=== PATIENT | male | born 1970 | race Hispanic/Latino ===

== ENCOUNTER 2017-04-26 09:58 | Inpatient (IN) | payer OTHER ==
[~2017-04-26] VITALS: Ht 165.1 cm; Wt 97.5 kg
[~2017-04-26 09:58] MED LIST: BENZTROPINE ME0.5 M1 PO; HALDOL 5MG TABLE5 MG PO; HALDOL PO; LEVOTHYROXINE50 MCG PO; LITHIUM CARBON600 MG PO; LORAZEPAM1 MG PO; NORVASC10 M1 PO; PROTONIX20 M1 PO
[2017-04-26 11:38] LABS: ABSOLUTE BASOPHIL COUNT 0 /CUMM (0.0-0.2); ABSOLUTE EOSINOPHIL COUNT 0.2 /CUMM (0.0-0.7); ABSOLUTE GRANULOCYTE CT 1.4 /CUMM (1.4-6.5); ABSOLUTE LYMPH COUNT 1.8 /CUMM (1.2-3.4); ABSOLUTE MONOCYTE COUNT 0.5 /CUMM (0.10-0.60); BASOPHIL % 0.7 % (0.0-2.0); EOSINOPHIL % 4.7 % (0-5); GRANULOCYTE % 36.1 % (42.2-75.2); HEMATOCRIT 36.2 % (42-52); MEAN CORPUSCULAR VOLUME 91.3 FL (80.0-94.0); MEAN PLATELET VOLUME 9.6 FL (7.4-10.4); PLATELET COUNT 216 /CUMM (130-400); RBC DISTRIBUTION WIDTH 17.5 % (11.5-14.5); RED BLOOD CELL CT 3.96 /CUMM (4.70-6.10); WHITE BLOOD CELL COUNT 3.9 /CUMM (4.8-10.8)
[2017-04-26] MEDS ORDERED: DEPAKOTE500 M1 PO (11:48)
[2017-04-26] MEDS ORDERED: NEURONTIN300 M1 PO (11:49)
[2017-04-26] MEDS ORDERED: OLANZAPINE10 M1 PO ×2 (11:49→11:51)
[2017-04-26] MEDS ORDERED: VITAMIN D1000 UNIT PO (11:49)
[2017-04-26] MEDS ORDERED: COLACE100 M1 PO (11:50)
[2017-04-26] MEDS ORDERED: HALDOL DEC50 MG/1 ML SC (11:50)
[2017-04-26] MEDS ORDERED: PROAIR HFA8.5 GM INH (11:51)
[2017-04-26] MEDS ORDERED: LOSARTAN POTASS50 M1 PO (11:52)
[2017-04-26] MEDS ORDERED: HALOPERIDOL5 MG PO (11:52)
[2017-04-26] MEDS ORDERED: ZYPREXA2.5 M1 PO (11:52)
--- NOTE | 2017-04-26 12:02 | ED GENERAL ADULT ---
History of Present Illness General Chief Complaint: General Adult Stated Complaint: SIB MD PROCTOR FOR HIGH BLOOD SUGAR Source: patient, family, old records Exam Limitations: no limitations Vital Signs & Intake/Output Vital Signs & Intake/Output Vital Signs Date Time Temp Pulse Resp B/P B/P Pulse O2 O2 Flow FiO2 Mean Ox Delivery Rate 04/28 1550 98.4 94 20 124/78 96 Room Air 04/28 1030 76 140/78 04/28 1030 76 140/78 04/28 0634 97.7 76 18 140/78 93 Room Air 04/27 2148 98.0 86 18 138/82 95 Room Air ED Intake and Output 04/28 0000 04/27 1200 Intake Total 2009 240 Output Total Balance 2009 240 Intake, IV 1050 Intake, Oral 960 240 Number 1 Bowel Movements Allergies Coded Allergies: NO KNOWN ALLERGIES (01/21/11) Triage Note: 46 Y/O MALE SENT BY DR PROCTOR FOR HYPERGLYCEMIA. PT STATES HE HAS BEEN FEELING "FATIGUED AND THIRSTY" FOR APPROX 5 WEEKS. SAW PMD AND HAD BLOOD WORK WHICH SHOWED BLOOD SUGAR >500. PT STATES "I FEEL BETTER TODAY. I FEEL FINE. I DONT WANT TO TAKE MEDICINE OR DO FINGERSTICKS BECAUSE I FEEL IT RUINS MY LIFE". FINGERSTICK IN TRIAGE > 500. PT STATES HE HAS HAD FRUIT, CARROTS, CELARY AND "SWEET TEA" TODAY Triage Nurses Notes Reviewed? yes Onset: Abrupt Duration: constant, x 1 month Timing: recent history Injury Environment: home Severity: moderate, severe Severity Numbers: 10 No Modifying Factors: none Associated Symptoms: nv, weight loss HPI: 46-year-old male with history of hypertension schizoaffective disorder presents to ER with his family sent in by his primary care physician. The patient states over the past 1 month he's lost 28 pounds he's had generalized malaise and fatigue urinary frequency urgency nausea vomiting. His last episode of vomiting was 5 days ago. He states today he was actually feeling improved. He denies any fever chills chest pain abdominal pain dizziness lightheadedness. No known history of diabetes. He is never been told that he has had elevated blood sugar in the past. He is otherwise without any complaints currently. (Phillip LOZANO,Ayan) Reconcile Medications Albuterol Sulfate (Proair Hfa) 90 MCG HFA.AER.AD 2 PUF INH Q4-6 PRN PRN SOB ( Reported) Amlodipine Besylate (Norvasc) 10 MG TABLET 1 TAB PO DAILY HEART (Reported) Benztropine Mesylate 0.5 MG TABLET 1 TAB PO BID MENTAL HEALTH (Reported) Cholecalciferol (Vitamin D3) (Vitamin D) 1,000 UNIT TABLET 1 TAB PO DAILY VITAMIN SUPPORT (Reported) Divalproex Sodium (Depakote) 500 MG TABLET.DR 2 TAB PO BID MENTAL HEALTH ( Reported) Docusate Sodium (Colace) 100 MG CAPSULE 1 CAP PO BID PRN CONSTIPATION ( Reported) Fenofibrate (Tricor) 48 MG TABLET 1 TAB PO DAILY LIPID Gabapentin (Neurontin) 300 MG CAPSULE 1 CAP PO 4 TIMES/DAY MENTAL HEALTH ( Reported) Haloperidol 5 MG TABLET 3 TAB PO BID MENTAL HEALTH (Reported) Haloperidol Decanoate (Haldol Decanoate 50) 50 MG/ML AMPUL 50 MG SC Q 2 WEEKS MENTAL HEALTH (Reported) Levothyroxine Sodium 50 MCG TABLET 1 TAB PO DAILY AC THYROID (Reported) Losartan Potassium 50 MG TABLET 1 TAB PO DAILY HEART (Reported) Olanzapine 10 MG TABLET 1 TAB PO DAILY PRN MENTAL HEALTH (Reported) Olanzapine 10 MG TABLET 1 TAB PO QPM MENTAL HEALTH (Reported) Olanzapine (Zyprexa) 2.5 MG TABLET 1 TAB PO QPM MENTAL HEALTH (Reported) Pantoprazole Sodium (Protonix) 20 MG TABLET.DR 1 TAB PO DAILY ACID REFLUX ( Reported) (Abram ARRIAGA,[facility]) Past History Travel History Traveled to [place] past 21 day No Medical History Any Pertinent Medical History? 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 No (Phillip LOZANO,Ayan) Review of Systems Review of Systems Constitutional: Reports: see HPI. Comments Review of systems: See HPI, All other systems negative. Constitutional, no chills no fever (+) malaise, (+) weight loss HEENT: no sore throat no congestion Cardiovascular: No chest pain Skin: no rashes, no change in skin Respiratory: No dyspnea no cough GI: nausea vomiting, no diarrhea : No dysuria No hematuria, frequency Muscle skeletal: No joint pain, no back pain Neurologic: , no headache Heme/endocrine: No bruising Immunology: No lymphadenopathy (Ayan Acosta) Physical Exam Physical Exam General Appearance: well developed/nourished, alert, awake Comments: Well-developed well-nourished person in no acute distress HEENT: Normal EENT exam; PERRL, EOMI,HEAD is atraumatic. moist mucous membranes. Neck: Supple, no lymphadenopathy, normal range of motion w Back: Nontender, no CVA tenderness. Full range of motion Cardiovascular: Regular rate and rhythms no murmur Respiratory: o respiratory distress. Patient speaking in full complete sentences. Breath sounds clear to auscultation bilaterally: NO W/R/R Abdomen: Soft, nontender nondistended, no appreciable organomegaly. Normal bowel sounds. No rebound/guarding, No appreciable enlargement of the abdominal aorta, No ascites. Extremity: No edema, full range of motion of extremities Neuro: Alert oriented x3, motor sensory normal, There were no obvious focal neurologic abnormalities. Skin: No appreciable rash on exposed skin, skin is warm and dry. Psych: Mood and affect is normal, memory and judgment is normal. Core Measures ACS in differential dx? No CVA/TIA Diagnosis: No Sepsis Present: No Sepsis Focused Exam Completed? No (Ayan Acosta) Progress Differential Diagnoses I considered the following diagnoses in my evaluation of the patient: dka, hhs, electrolyte abnoramlity, uti, malignancy Plan of Care: Orders Procedure Date/time Status CBC WITHOUT DIFFERENTIAL 04/29 0600 Active BASIC ELECTROLYTES PLUS BUN&CR 04/29 0600 Active Change service to 04/28 0826 Active TOTAL IRON BINDING CAPACITY 04/28 0745 Complete FOLIC ACID 04/28 0745 Complete FERRITIN 04/28 0745 Complete SERUM IRON 04/28 0745 Complete DIRECT LDL 04/28 0745 Complete VITAMIN B12 04/28 0745 Complete C-PEPTIDE Ref$ 04/28 0600 Active Lab Add-on Test 04/28 UNK Active Hemoccult 04/28 UNK Active NUTRITIONAL CONSULT 04/28 UNK Active Current Medications Sig/Gee Start time Last Medication Dose Stop Time Status Admin Olanzapine 10 MG DAILY 04/29 1000 CAN (Zyprexa) Olanzapine 2.5 MG DAILY 04/29 1000 CAN (Zyprexa 2.5MG) Olanzapine 12.5 MG QPM 04/28 2200 CAN (Zyprexa) Olanzapine 10 MG QPM 04/28 2200 AC (Zyprexa) Olanzapine 2.5 MG QPM 04/28 2200 AC (Zyprexa 2.5MG) Insulin Aspart Prota 15 UNIT 1/2H B/BREAKF/DINNER 04/28 1630 AC 70%/Aspart 30% (Novolog Mix 70/30) Fenofibrate 48 MG DAILY 04/28 1000 AC 04/28 (Tricor) 1000 Olanzapine 10 MG DAILY NEEDED PRN 04/28 0930 AC (Zyprexa) Glimepiride 4 MG DAILY@0800 04/28 0845 AC 04/28 (Amaryl) 1030 Cholecalciferol 1,000 IU DAILY 04/27 1000 AC 04/28 (Vitamin D) 1030 Losartan Potassium 50 MG DAILY 04/27 1000 AC 04/28 (Cozaar) 1030 Levothyroxine Sodium 0.05 MG DAILY AC 04/27 0700 AC 04/28 (Synthroid) 0611 Omeprazole 20 MG DAILY AC 04/27 0700 AC 04/28 (Prilosec) 0611 Benztropine Mesylate 0.5 MG BID 04/26 2200 AC 04/28 (Cogentin 0.5 MG Tab) 1030 Divalproex Sodium 1,000 MG BID 04/26 2200 AC 04/28 (Depakote) 1030 Haloperidol 15 MG BID 04/26 2200 AC 04/28 (Haldol) 1030 Gabapentin 300 MG 4 TIMES/DAY 04/26 1800 AC 04/28 (Neurontin) 1500 Albuterol Sulfate 2 PUF Q4-6 PRN PRN 04/26 1430 AC (Ventolin) Amlodipine Besylate 10 MG DAILY 04/26 1430 AC 04/28 (Norvasc) 1030 Acetaminophen 325 MG Q6P PRN 04/26 1330 AC (Tylenol) Enoxaparin Sodium 40 MG DAILY 04/26 1321 AC 04/28 (Lovenox) 1030 Laboratory Tests 04/28/17 0745: Anion Gap 17 H, Estimated GFR > 60, BUN/Creatinine Ratio 16.7, Iron 161, TIBC 340, Ferritin 85.4, Triglycerides 661 H, Cholesterol 202 H, LDL Cholesterol Direct 89.37, LDL Cholesterol, Calc ND, HDL Cholesterol 23 L, Cholesterol/HDL Ratio 9 H, Vitamin B12 779, Folate 8.5, CBC w Diff NO MAN DIFF REQ, RBC 3.59 L , MCV 91.7, MCH 30.7, RDW 17.9 H, MPV 9.6, Gran % 35.3 L, Lymphocytes % 47.7, Monocytes % 11.9 H, Eosinophils % 4.6, Basophils % 0.5, Absolute Granulocytes 1.4, Absolute Lymphocytes 1.9, Absolute Monocytes 0.5, Absolute Eosinophils 0.2, Absolute Basophils 0, PUBS MCHC 33.5 04/28/17 0600: C-Peptide Pending Labs ordered old records reviewed IV fluids and insulin 10 units IV ordered case discussed with Dr. Valverde who evaluated the patient agrees with plan. 1320 case d/w dr masters, after reviewing labs, pt is nontoxic appearing here no vomiting, given ph of 7.41 no need for insulin gtt at this time, he will isntead be admitted to floor instea dof icu. we can continue with iv fluids and sc insulin per dr masters. d/w the pt and his family at [facility] all of his labs and plan of care they agree with plan case d/w dr dietrich will admit (Ayan Acosta) PATIENT SEEN AND EXAMINED WITH PA. NEW ONSET DM, PRESENTING WITH DKA. PH 7.41. PER DR MASTERS WILL NOT NEED INSULIN DRIP. D/W DR ZHAO BUT IN LIGHT OF NO INSULIN DRIP WILL GO TO . PATIENT HAS BEEN SYMPTOMATIC FOR ONE MONTH, COMPENSATING. (Sara Valverde MD) Initial ED EKG: normal intervals, normal p-waves, normal QRS complex, normal sinus rhythm (Ayan Acosta) Differential Diagnoses I considered the following diagnoses in my evaluation of the patient: (Sara Valverde MD) Departure Departure Time of Disposition: 1412 Disposition: STILL A PATIENT Condition: Stable Clinical Impression Primary Impression: DKA (diabetic ketoacidoses) Referrals: Van Proctor APRN (PCP/Family) Departure Forms: Customer Survey General Discharge Information Admission Note Spoke With: Karlo ARRIAGA,Cassandra James Documentation of Exam: Documentation of any treatments & extenuating circumstances including Concerns Regarding Discharge (functional status, medication knowledge or non-compliance, living conditions, etc.) that warrant an admission rather than observation: [IV HYDRATION, INSULIN DRIP, MONITOR ELECTROLYTES, ENDOCRINE CONSULTATION, MONITOR I /O, ] (Ayan Acosta) Departure Time of Disposition: 1309 Prescriptions: Current Visit Scripts Fenofibrate (Tricor) 1 TAB PO DAILY #30 TAB Admission Note Spoke With: Cassandra Dietrich MD Documentation of Exam: Documentation of any treatments & extenuating circumstances including Concerns Regarding Discharge (functional status, medication knowledge or non-compliance, living conditions, etc.) that warrant an admission rather than observation: [IV HYDRATION, INSULIN DRIP, MONITOR ELECTROLYTES, ENDOCRINE CONSULTATION, MONITOR I /O, ] PA/INTERIOR MECHANIC Co-Sign Statement Statement: ED Attending supervision documentation- [X] I saw and evaluated the patient. I have also reviewed all the pertinent lab results and diagnostic results. I agree with the findings and the plan of care as documented in the PA's/INTERIOR MECHANIC's documentation. [X] I have reviewed the ED Record and agree with the PA's/INTERIOR MECHANIC's documentation. [] Additions or exceptions (if any) to the PAs/INTERIOR MECHANIC's note and plan are summarized below: [] (Sara Valverde MD) Critical Care Note Critical Care Note Critical Care Time: 30-74 min (Ayan Acosta) (Ayan Acosta) Departure Time of Disposition: 1309 Admission Note Spoke With: Cassandra Dietrich MD Documentation of Exam: Documentation of any treatments & extenuating circumstances including Concerns Regarding Discharge (functional status, medication knowledge or non-compliance, living conditions, etc.) that warrant an admission rather than observation: [IV HYDRATION, INSULIN DRIP, MONITOR ELECTROLYTES, ENDOCRINE CONSULTATION, MONITOR I /O, ] PA/INTERIOR MECHANIC Co-Sign Statement Statement: ED Attending supervision documentation- [X] I saw and evaluated the patient. I have also reviewed all the pertinent lab results and diagnostic results. I agree with the findings and the plan of care as documented in the PA's/INTERIOR MECHANIC's documentation. [X] I have reviewed the ED Record and agree with the PA's/INTERIOR MECHANIC's documentation. [] Additions or exceptions (if any) to the PAs/INTERIOR MECHANIC's note and plan are summarized below: [] (Skylar Valverde MDi) Critical Care Note Critical Care Note Critical Care Time: 30-74 min (Ayan Acosta)
--- NOTE | 2017-04-26 14:28 | History & Physical ---
Joel Uriostegui 04/26/17 1403: General Information and HPI MD Statement: I have seen and personally examined FARHATNAHOMY and documented this H&P. The patient is a 46 year old M who presented with a patient stated chief complaint of generalized malaise and fatigue. Source of Information: patient Exam Limitations: no limitations History of Present Illness: Patient is a 46-year-old male with past medical history of hypertension,schizo affective disorder was sent in by his PCP to the ER for abnormal blood work showing elevated blood sugar levels. Patient reports that for the past 1 month he has been feeling very lethargic, tired and fatigued and has lost about 28 pounds. He did have few episodes of nausea and vomiting. He has been drinking a lot of fruit juices, fruits and vegetables and not much carbohydrates over the past few days. Also endorses increasing urinary frequency and urgency. Denies any chest pain, shortness of breath, palpitations, abdominal pain, bowel symptoms. He has no history of diabetes. No recent infections, sick contacts, or travel. He visited his PCP Nhan MICHELLE for the following complaints and blood work done in his office revealed elevated blood sugar levels. Therefore he was advised to come to the ER for evaluation. Labs in the ER showed an H&H of 12.3/36.2, sodium 134, potassium 4.3, carbon dioxide of 19, anion gap 26, creatinine 0.8, glucose 547, serum osmolality 307, lactic acid 1.1, mag 1.6, alkaline phosphatase 187, troponin 0.01, positive acetones.UA clean VBG showed a pH of 7.41/CO2 21/O2 92 Allergies/Medications Allergies: Coded Allergies: NO KNOWN ALLERGIES (01/21/11) Home Med list Albuterol Sulfate (Proair Hfa) 90 MCG HFA.AER.AD 2 PUF INH Q4-6 PRN PRN SOB ( Reported) Amlodipine Besylate (Norvasc) 10 MG TABLET 1 TAB PO DAILY HEART (Reported) Benztropine Mesylate 0.5 MG TABLET 1 TAB PO BID MENTAL HEALTH (Reported) Cholecalciferol (Vitamin D3) (Vitamin D) 1,000 UNIT TABLET 1 TAB PO DAILY VITAMIN SUPPORT (Reported) Divalproex Sodium (Depakote) 500 MG TABLET.DR 2 TAB PO BID MENTAL HEALTH ( Reported) Docusate Sodium (Colace) 100 MG CAPSULE 1 CAP PO BID PRN CONSTIPATION ( Reported) Gabapentin (Neurontin) 300 MG CAPSULE 1 CAP PO 4 TIMES/DAY MENTAL HEALTH ( Reported) Haloperidol 5 MG TABLET 3 TAB PO BID MENTAL HEALTH (Reported) Haloperidol Decanoate (Haldol Decanoate 50) 50 MG/ML AMPUL 50 MG SC Q 2 WEEKS MENTAL HEALTH (Reported) Levothyroxine Sodium 50 MCG TABLET 1 TAB PO DAILY AC THYROID (Reported) Losartan Potassium 50 MG TABLET 1 TAB PO DAILY HEART (Reported) Olanzapine 10 MG TABLET 1 TAB PO QPM MENTAL HEALTH (Reported) Olanzapine 10 MG TABLET 1 TAB PO QPM PRN MENTAL HEALTH (Reported) Olanzapine (Zyprexa) 2.5 MG TABLET 1 TAB PO QPM MENTAL HEALTH (Reported) Pantoprazole Sodium (Protonix) 20 MG TABLET.DR 1 TAB PO DAILY ACID REFLUX ( Reported) Past History Travel History Traveled to [place] past 21 day No Medical History Neurological: seizure EENT: allergies Cardiovascular: hypertension Respiratory: NONE Gastrointestinal: GERD Hepatic: NONE Renal: NONE Musculoskeletal: NONE Psychiatric: schizo affective disorder Endocrine: NONE Blood Disorders: NONE Cancer(s): NONE 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 EENTM: Reports: no symptoms. Cardiovascular: Reports: no symptoms. Respiratory: Reports: no symptoms. GI: Reports: vomiting. Genitourinary: Reports: urgency. Musculoskeletal: Reports: no symptoms. Exam & Diagnostic Data Last 24 Hrs of Vital Signs/I&O Vital Signs Date Time Temp Pulse Resp B/P B/P Pulse O2 O2 Flow FiO2 Mean Ox Delivery Rate 04/26 1408 97.3 89 18 138/74 95 04/26 1017 96.8 100 18 151/80 95 Room Air Intake & Output 04/26 1600 04/26 0800 04/26 0000 Intake Total Output Total Balance Patient 97.522 kg Weight Weight Reported by Patient Measurement Method Physical Exam General Appearance Alert, Oriented X3, Cooperative, Mild Distress Skin No Rashes, No Breakdown, No Significant Lesion Skin Temp/Moisture Exam: Warm/Dry Sepsis Skin Exam (color): Normal for Ethnicity HEENT Atraumatic, PERRLA, EOMI, dry mucous membranes Neck Supple Cardiovascular Regular Rate, Normal S1, Normal S2 Lungs Clear to Auscultation, Normal Air Movement Abdomen Normal Bowel Sounds, Soft, No Tenderness Neurological Normal Speech, Normal Tone, Cranial Nerves 3-12 NL Extremities No Clubbing, No Edema, Normal Pulses Last 24 Hrs of Labs/Issac: Laboratory Tests 04/26/17 1225: Bicarbonate Actual 13 L, Mixed VBG pH 7.41, Mixed VBG pCO2 21 L, Mixed VBG O2 Saturation 71 H, P-50 (Temp Corrected) N, Carboxyhemoglobin 0.3 L, O2 Concentration % .21, O2 Delivery Method RA, Phlebotomy Draw Site RIGHT ARM 04/26/17 1200: Urine Color STRAW, Urine Clarity CLEAR, Urine pH 6.0, Ur Specific [place] 1.010, Urine Protein NEG, Urine Ketones >=80, Urine Nitrite NEG, Urine Bilirubin NEG, Urine Urobilinogen 0.2, Ur Leukocyte Esterase NEG, Ur Microscopic EXAM NOT REQUIRED, Urine Hemoglobin NEG, Urine Glucose >=1000 H 04/26/17 1119: Lactic Acid 1.1 04/26/17 1119: Anion Gap 26 H, Estimated GFR > 60, BUN/Creatinine Ratio 17.5, Glucose 547 *H, Serum Osmolality 307 H, Calcium 10.0, Magnesium 1.6, Total Bilirubin 0.5, AST 18, ALT 33, Alkaline Phosphatase 187 H, Troponin I < 0.01, Total Protein 7.8, Albumin 4.6, Globulin 3.2, Albumin/Globulin Ratio 1.4, CBC w Diff NO MAN DIFF REQ, RBC 3.96 L, MCV 91.3, MCH 31.0, RDW 17.5 H, MPV 9.6, Gran % 36.1 L, Lymphocytes % 45.8, Monocytes % 12.7 H, Eosinophils % 4.7, Basophils % 0.7, Absolute Granulocytes 1.4, Absolute Lymphocytes 1.8, Absolute Monocytes 0.5, Absolute Eosinophils 0.2, Absolute Basophils 0, PUBS MCHC 34.0, Acetone Level POSITIVE AT 1:16 DIL Assessment/Plan Assessment: Patient is a 46-year-old male with past medical history of hypertension,schizo affective disorder was sent in by his PCP to the ER for abnormal blood work showing elevated blood sugar levels. Labs in the ER showed an H&H of 12.3/36.2, sodium 134, potassium 4.3, carbon dioxide of 19, anion gap 26, creatinine 0.8, glu7, serum osmolality 307, lactic acid 1.1, mag 1.6, alkaline phosphatase 187, troponin 0.01, positive acetones.UA clean VBG showed a pH of 7.41/CO2 21/O2 92 Last fingersticks 301 Patient received 3 L normal saline boluses and 10 units of Novolin iv the ED Assessment #1 Hyperglycemia: Likely new-onset diabetes presenting with DKA with ketoacidosis. The patient has an arterial pH of 7.3 and CO2 of less than 21, however he is compensating well. He is he is alert, oriented, mentating well and hungry. No source of infection identified. Last fingerstick 301. Initially was planned for ICU, however given no acidemia on the gas and good mentation, endocrinology recommended that the patient is fit for the general medicine floor. -Admit patient to [facility] floor -Vitals per protocol -Which check stat BEP to see if gap has closed. Further lab depending on that. -4 times a day Accu-Cheks for now. Change per endocrinology recommendations. -Received 2 L of fluids in the ED. Continue IV normal saline at 100 cc/h with potassium chloride -He received 10 units of IV Novolin in the ED. We'll start him on a subcutaneous NovoLog scale along with the bedtime separate scale. -Start 10 units of Levemir twice a day starting now -We will check baseline chest x-ray. UA shows no signs of infection -Check TSH, lipid profile, hemoglobin A1c -We will get a baseline EKG -Endocrinology consult with Dr. Lui in p.m. #2 History of schizoaffective disorder -Continue home meds olanzapine, haloperidol, Depakote, Cogentin -Psych consult in a.m. -Please confirm Psych meds in am #3 Hypertension -Continue home medications losartan and amlodipine Continue all other home medications levothyroxine, albuterol, multivitamins DVT prophylaxis subcutaneous Lovenox Full code Mild pain pathway As Ranked By This Provider Problem List: 1. DKA (diabetic ketoacidoses) 2. Schizoaffective disorder Core Measures/Misc (01/01) Acute Coronary Syndrome ACS Diagnosis: No Congestive Heart Failure Congestive Heart Failure Diagnosis No Cerebrovascular Accident CVA/TIA Diagnosis: No VTE (View Protocol) VTE Risk Factors Age>40 No Mechanical VTE Prophylaxis d/t N/A MechProphylax Ordered No VTE Pharm Prophylaxis d/t NA PharmProphylax ordered Sepsis (View protocol) Sepsis Present: No Cassandra Dietrich MD 04/26/17 1430: Past Family/Social History Psychosocial History Other Social History: FH - Patient thinks that other family members may have DM but he is not sure Attending MD Review Statement Attending Statement Attending MD Statement: examined this patient, discuss w/resident/PA/GENERATION ENGINEER, agreed w/resident/PA/GENERATION ENGINEER, reviewed EMR data (avail), reviewed images Attending Assessment/Plan: 46-year-old male with past medical history of hypertension, GERD and schizoaffective disorder on multiple psychiatric medications who is here with DKA and new onset diabetes. Patient has been having symptoms for a while now and got blood drawn from his primary care physician which is what prompted this ER visit. In the ER he was noted to have an anion gap of 26 with uncontrolled hyperglycemia with ketoacidosis. He received 10 units of insulin IV, 2 L of fluid normal saline and his venous blood gas done reveals a pH of 7.41 with a PCO2 of 20. Initially he was going to be admitted to the ICU but because of the lack of acidemia on the gas, the fact that the patient is alert and mentating and that he is hungry and wants to eat- this was discussed with Dr. Lui the grades [address] Minor the ICU attending, both of whom feel that the patient is stable for general medicine. The plan is to continue the IV fluids at 100 mL an hour of normal saline with 20 of KCl per liter of fluid. Give him Levemir now and put him on a NovoLog sliding scale 3 times a day and at bedtime. There is no evidence of any acute infection. UA is negative and will check a chest x-ray. We'll check a baseline EKG, continue his antihypertensives, continue his psychiatric meds and DVT prophylaxis. Check a stat BEP to make sure the gap has closed and his potassium is okay and based on this BEP will decide on further blood testing and frequency.
--- NOTE | 2017-04-26 14:29 | Admission Certification ---
Admission Certification Certification Statement - As attending physician, I certify that at the time of - admission, based on clinical presentation, severity of - symptoms, need for further diagnostic testing and - therapeutic interventions, and risk of adverse outcomes - without in-hospital treatment, in my clinical assessment, - this patient requires an acute hospital stay for a minimum - of two nights or longer. I have also considered psychsocial - factors such as support system, advanced age, financial - issues, cognitive issues, and failed out-patient treatments, - past re-admission history, safety of patient, and lack of - compliance as applicable. Specific rationale supporting this admission is: New onset diabetes with DKA, needs IV fluids and insulin.
--- NOTE | 2017-04-26 15:12 | RADIOLOGY REPORT ---
EXAMINATION: CHEST 2 VIEWS CLINICAL INFORMATION: Chest infection. COMPARISON: None. TECHNIQUE: PA and lateral views of the chest were obtained. FINDINGS: The cardiac silhouette is not enlarged. The mediastinal and hilar contours are unremarkable. There are neither pleural effusions nor pneumothoraces. There are no consolidations. The osseous structures are unremarkable. IMPRESSION: No evidence for acute disease.
--- NOTE | 2017-04-26 19:33 | Cons- Endocrinology ---
General Information and HPI Consulting Request Date of Consult: 04/26/17 Requested By: medical team Reason for Consult: uncontrolled diabetes Source of Information: patient, family Exam Limitations: poor historian History of Present Illness: This 46-year-old male was brought to the emergency room by his family because the patient felt very tired and was acting lethargic. He did have a weight loss of about close to 30 pounds. He also had a few episodes of nausea and vomiting and had some increased thirst urination. The patient was previously taken to [facility] in March because of blurred vision. His sugar was not checked but he was told that he did not have diabetes according to the family. The patient has a past history of schizophrenia. He is on medications at home including Depakote Haldol and Zyprexa. Prior to his recent weight loss. Gained tremendous weight on all the way up to 244 pounds. He did not feel comfortable at this weight. He states that a nurse visits his house to help him with his medication program. Allergies/Medications Allergies: Coded Allergies: NO KNOWN ALLERGIES (01/21/11) Home Med List: Albuterol Sulfate (Proair Hfa) 90 MCG HFA.AER.AD 2 PUF INH Q4-6 PRN PRN SOB ( Reported) Amlodipine Besylate (Norvasc) 10 MG TABLET 1 TAB PO DAILY HEART (Reported) Benztropine Mesylate 0.5 MG TABLET 1 TAB PO BID MENTAL HEALTH (Reported) Cholecalciferol (Vitamin D3) (Vitamin D) 1,000 UNIT TABLET 1 TAB PO DAILY VITAMIN SUPPORT (Reported) Divalproex Sodium (Depakote) 500 MG TABLET.DR 2 TAB PO BID MENTAL HEALTH ( Reported) Docusate Sodium (Colace) 100 MG CAPSULE 1 CAP PO BID PRN CONSTIPATION ( Reported) Gabapentin (Neurontin) 300 MG CAPSULE 1 CAP PO 4 TIMES/DAY MENTAL HEALTH ( Reported) Haloperidol 5 MG TABLET 3 TAB PO BID MENTAL HEALTH (Reported) Haloperidol Decanoate (Haldol Decanoate 50) 50 MG/ML AMPUL 50 MG SC Q 2 WEEKS MENTAL HEALTH (Reported) Levothyroxine Sodium 50 MCG TABLET 1 TAB PO DAILY AC THYROID (Reported) Losartan Potassium 50 MG TABLET 1 TAB PO DAILY HEART (Reported) Olanzapine 10 MG TABLET 1 TAB PO QPM MENTAL HEALTH (Reported) Olanzapine 10 MG TABLET 1 TAB PO QPM PRN MENTAL HEALTH (Reported) Olanzapine (Zyprexa) 2.5 MG TABLET 1 TAB PO QPM MENTAL HEALTH (Reported) Pantoprazole Sodium (Protonix) 20 MG TABLET.DR 1 TAB PO DAILY ACID REFLUX ( Reported) Review of Systems Review of Systems Constitutional: Denies: chills, fever. Cardiovascular: Denies: chest pain. Respiratory: Denies: cough, short of breath. GI: Reports: nausea, vomiting. Denies: abdominal pain. Genitourinary: Reports: frequency. Skin: Reports: no symptoms. Neurological/Psychological: Reports: anxiety, other (schizophrenia). 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 Surgical History Surgical History: non-contributory Exam & Diagnostic Data Last 24 Hrs of Vital Signs/I&O Vital Signs Date Time Temp Pulse Resp B/P B/P Pulse O2 O2 Flow FiO2 Mean Ox Delivery Rate 04/26 1831 97.1 87 18 133/79 96 04/26 1705 75 133/70 04/26 1651 96.8 75 16 133/70 95 Room Air 04/26 1408 97.3 89 18 138/74 95 04/26 1017 96.8 100 18 151/80 95 Room Air Intake & Output 04/26 1600 04/26 0000 Intake Total 1999 Output Total Balance 1999 Intake, IV 1999 Patient 215 lb Weight Weight Reported by Patient Measurement Method Vital Signs Date Time Temp Pulse Resp B/P B/P Pulse O2 O2 Flow FiO2 Mean Ox Delivery Rate 04/26 1831 97.1 87 18 133/79 96 04/26 1705 75 133/70 04/26 1651 96.8 75 16 133/70 95 Room Air 04/26 1408 97.3 89 18 138/74 95 04/26 1017 96.8 100 18 151/80 95 Room Air Intake & Output 04/26 1600 04/26 0000 Intake Total 1999 Output Total Balance 1999 Intake, IV 1999 Patient 215 lb Weight Weight Reported by Patient Measurement Method Physical Exam General Appearance: alert, awake, comfortable Head: normal appearance Neck: normal inspection Cardiovascular: regular rate/rhythm Gastrointestinal: normal bowel sounds, soft Extremities: normal inspection Neurologic/Psych: awake, alert Skin: intact Labs/Issac Results: Laboratory Tests 04/26 04/26 04/26 04/26 1930 1900 1455 1225 Blood Gas Bicarbonate Actual (22 - 26 MEQ/L) 13 L Mixed VBG pH (7.31 - 7.41 PH) 7.41 Mixed VBG pCO2 (41 - 51 TORR) 21 L Mixed VBG O2 Saturation (35 - 45 TORR) 71 H P-50 (Temp Corrected) N Carboxyhemoglobin (1.5 - 5.0 %) 0.3 L O2 Concentration % .21 O2 Delivery Method RA Chemistry Sodium (137 - 145 mmol/L) Cancelled 138 139 Potassium (3.5 - 5.1 mmol/L) Cancelled 3.8 3.7 Chloride (98 - 107 mmol/L) Cancelled 102 98 Carbon Dioxide (22 - 30 mmol/L) Cancelled 16 L 18 L Anion Gap (5 - 16) Cancelled 20 H 24 H BUN (9 - 20 mg/dL) Cancelled 8 L 11 Creatinine (0.7 - 1.2 mg/dL) Cancelled 0.6 L 0.7 Estimated GFR (>60 ml/min) > 60 > 60 BUN/Creatinine Ratio (7 - 25 %) Cancelled 13.3 15.7 Miscellaneous Phlebotomy Draw Site RIGHT ARM 04/26 04/26 1200 1119 Chemistry Lactic Acid (0.7 - 2.1 mmol/L) 1.1 Urines Urine Color (YEL,AMB,STR) STRAW Urine Clarity (CLEAR) CLEAR Urine pH (5.0 - 8.0) 6.0 Ur Specific [place] (1.001 - 1.035) 1.010 Urine Protein (NEG,<30 MG/DL) NEG Urine Ketones (NEG) >=80 Urine Nitrite (NEG) NEG Urine Bilirubin (NEG) NEG Urine Urobilinogen (0.1 - 1.0 EU/dl) 0.2 Ur Leukocyte Esterase (NEG) NEG Ur Microscopic EXAM NOT REQUIRED Urine Hemoglobin (NEG) NEG Urine Glucose (N MG/DL) >=1000 H 04/26 1119 Chemistry Sodium (137 - 145 mmol/L) 134 L Potassium (3.5 - 5.1 mmol/L) 4.3 Chloride (98 - 107 mmol/L) 89 L Carbon Dioxide (22 - 30 mmol/L) 19 L Anion Gap (5 - 16) 26 H BUN (9 - 20 mg/dL) 14 Creatinine (0.7 - 1.2 mg/dL) 0.8 Estimated GFR (>60 ml/min) > 60 BUN/Creatinine Ratio (7 - 25 %) 17.5 Glucose (65 - 99 mg/dL) 547 *H Hemoglobin A1c (4.2 - 5.8 %) 16.2 H Serum Osmolality (285 - 295 MOSM/KG) 307 H Calcium (8.4 - 10.2 mg/dL) 10.0 Magnesium (1.6 - 2.3 mg/dL) 1.6 Total Bilirubin (0.2 - 1.3 mg/dL) 0.5 AST (17 - 59 U/L) 18 ALT (21 - 72 U/L) 33 Alkaline Phosphatase (< 127 U/L) 187 H Troponin I (<0.11 ng/ml) < 0.01 Total Protein (6.3 - 8.2 g/dL) 7.8 Albumin (3.5 - 5.0 g/dL) 4.6 Globulin (1.9 - 4.2 gm/dL) 3.2 Albumin/Globulin Ratio (1.1 - 2.2 %) 1.4 Triglycerides (<150 mg/dL) 1254 H Cholesterol (< 200 MG/DL) 250 H LDL Cholesterol Direct (<100 mg/dL) 60.01 LDL Cholesterol, Calc (65 - 129 MG/DL) ND HDL Cholesterol (40 - 60 mg/dL) 27 L Cholesterol/HDL Ratio (0.00 - 4.88 %) 9 H TSH (0.270 - 4.200 uIU/mL) 3.900 Hematology CBC w Diff NO MAN DIFF REQ WBC (4.8 - 10.8 /CUMM) 3.9 L RBC (4.70 - 6.10 /CUMM) 3.96 L Hgb (14.0 - 18.0 G/DL) 12.3 L Hct (42 - 52 %) 36.2 L MCV (80.0 - 94.0 FL) 91.3 MCH (27.0 - 31.0 PG) 31.0 RDW (11.5 - 14.5 %) 17.5 H Plt Count (130 - 400 /CUMM) 216 MPV (7.4 - 10.4 FL) 9.6 Gran % (42.2 - 75.2 %) 36.1 L Lymphocytes % (20.5 - 51.1 %) 45.8 Monocytes % (1.7 - 9.3 %) 12.7 H Eosinophils % (0 - 5 %) 4.7 Basophils % (0.0 - 2.0 %) 0.7 Absolute Granulocytes (1.4 - 6.5 /CUMM) 1.4 Absolute Lymphocytes (1.2 - 3.4 /CUMM) 1.8 Absolute Monocytes (0.10 - 0.60 /CUMM) 0.5 Absolute Eosinophils (0.0 - 0.7 /CUMM) 0.2 Absolute Basophils (0.0 - 0.2 /CUMM) 0 PUBS MCHC (33.0 - 37.0 G/DL) 34.0 Toxicology Acetone Level (NEGATIVE) POSITIVE AT 1:16 DIL Assessment/Plan Assessment/Plan This patient has uncontrolled diabetes type 2 associated with morbid obesity. His anion gap is 26 and acetone positive 1-16. His CO2 is 19. However his venous pH is 7.41. He has significant ketosis without profound ketoacidosis. The patient has been hydrated with 4 L of normal saline. He is now on normal saline +20 KCl at 100 cc/h. He is able to eat and did have supper. He has had no further vomiting. He states he feels fine. The patient's blood sugar now is 274. I suggest we give him an additional 4 units of NovoLog now. Suggest that the patient be on Levemir 10 units twice a day the first dose tonight. We should revise his sliding scale NovoLog before meals. Sliding scale NovoLog before meals should be 80-150 give 4 units NovoLog, 151-200 give 6 units NovoLog , 201-250 give 8 units NovoLog, 251-300 give 10 units NovoLog, 301-350 give 12 units NovoLog, 351-400 give 14 units NovoLog. The patient should also have a bedtime sliding scale NovoLog written. Sliding- scale NovoLog at bedtime should be less than 250 give no insulin, 251-300 give 3 units NovoLog, 301-350 give 4 units NovoLog 3 5104 100 give 5 units novolog. I would repeat the patient's blood work at 10 PM tonight. His anion gap is closing but his bicarb has fallen to 16. If we do not see further improvement we may need to move this patient into the intensive care unit and place him on an insulin drip. Consult Acknowledgment - Thank you for your consult request.
[2017-04-26 22:11] VITALS: BP 136/78
[2017-04-27 06:10] VITALS: BP 128/74
[2017-04-27 08:18] LABS: ABSOLUTE BASOPHIL COUNT 0 /CUMM (0.0-0.2); ABSOLUTE EOSINOPHIL COUNT 0.3 /CUMM (0.0-0.7); ABSOLUTE GRANULOCYTE CT 0.8 /CUMM (1.4-6.5); ABSOLUTE MONOCYTE COUNT 0.4 /CUMM (0.10-0.60)
--- NOTE | 2017-04-27 08:19 | PN- Diabetes ---
Assessment/Plan Assessment: The patient feels okay this morning. His last blood work during the night shows that he closed his anion gap and his bicarbonate marielena to 20 The patient is eating and he is not vomiting. Plan: Suggest that we can Hep-Lock the patient's IV fluids. We should continue Levemir 10 units twice a day and sliding scale NovoLog before meals with a separate sliding scale at bedtime as written. We can change his fingerstick blood sugars to before meals and bedtime readings. We should increase his activity. The patient's triglycerides were very high in the emergency room. We should repeat his lipid profile and a CMP today now that his blood sugar is in better control. Psychiatry consultation should be done as the patient is on several different antipsychotic drugs which can result in weight gain. Subjective Subjective: Feels okay Review of Systems Constitutional: Denies: chills, fever. Cardiovascular: Denies: chest pain. Respiratory: Denies: short of breath. Gastrointestinal: Denies: abdominal pain. Skin: Reports: no symptoms. Objective Last 24 Hrs of Vital Signs/I&O Vital Signs Date Time Temp Pulse Resp B/P B/P Pulse O2 O2 Flow FiO2 Mean Ox Delivery Rate 04/27 609 97.9 71 18 128/74 96 04/26 221 97.5 90 20 136/78 95 Room Air 04/26 1943 Room Air 04/26 183 97.1 87 18 133/79 96 04/26 1705 75 133/70 04/26 1651 96.8 75 16 133/70 95 Room Air 04/26 1408 97.3 89 18 138/74 95 04/26 1017 96.8 100 18 151/80 95 Room Air Intake & Output 04/27 1600 04/27 0800 04/27 0000 Intake Total 240 2240 Output Total 400 Balance 240 1840 Intake, IV 2000 Intake, Oral 240 240 Output, Urine 400 Patient 215 lb Weight Weight Reported by Patient Measurement Method Vital Signs Date Time Temp Pulse Resp B/P B/P Pulse O2 O2 Flow FiO2 Mean Ox Delivery Rate 04/27 0510 97.9 71 18 128/74 96 04/26 2211 97.5 90 20 136/78 95 Room Air 04/26 1943 Room Air 04/26 183 97.1 87 18 133/79 96 04/26 1705 75 133/70 04/26 1651 96.8 75 16 133/70 95 Room Air 04/26 1408 97.3 89 18 138/74 95 04/26 1017 96.8 100 18 151/80 95 Room Air Intake & Output 04/27 1600 04/27 0800 04/27 0000 Intake Total 240 2240 Output Total 400 Balance 240 1840 Intake, IV 2000 Intake, Oral 240 240 Output, Urine 400 Patient 215 lb Weight Weight Reported by Patient Measurement Method Physical Exam General Appearance: alert, awake, comfortable Neck: normal inspection Respiratory: normal breath sounds Cardiovascular: regular rate/rhythm Abdomen: normal bowel sounds Extremities: normal inspection Current Medications: Current Medications Sig/Gee Start time Last Medication Dose Route Stop Time Status Admin Acetaminophen 325 MG Q6P PRN 04/26 1330 AC PO Albuterol Sulfate 2 PUF Q4-6 PRN PRN 04/26 1430 AC INH Amlodipine Besylate 10 MG DAILY 04/26 1430 AC PO Benztropine Mesylate 0.5 MG BID 04/26 2200 AC 04/26 PO 2204 Cholecalciferol 1,000 IU DAILY 04/27 1000 AC PO Divalproex Sodium 1,000 MG BID 04/26 2200 AC 04/26 PO 2201 Enoxaparin Sodium 40 MG DAILY 04/26 1321 AC 04/26 [place] 1507 Gabapentin 0 .STK-MED ONE 04/26 191 DC PO Gabapentin 300 MG 4 TIMES/DAY 04/26 1800 AC 04/26 PO 2201 Haloperidol 15 MG BID 04/26 2200 AC 04/26 PO 2202 Influenza Virus 0.5 ML ONCE ONE 04/26 2114 DC Vaccine IM 04/26 2115 Insulin Aspart 4 UNITS ONCE ONE 04/26 1999 DC 04/26 SC 04/26 Insulin Aspart 0 TIDAC/HS 04/26 1700 AC 04/26 SC 2201 Insulin Detemir 10 UNITS BID 04/26 1500 AC 04/26 SC 2200 Insulin Human Regular 100 UNIT ONCE ONE 04/26 1315 CAN Sodium Chloride 100 ML IV 04/26 1316 Insulin Human Regular 10 UNITS ONCE ONE 04/26 1215 DC 04/26 IV 04/26 1216 1214 Levothyroxine Sodium 0.05 MG DAILY AC 04/27 0700 AC 04/27 PO 0523 Losartan Potassium 50 MG DAILY 04/27 1000 AC PO Magnesium Sulfate 1 GM ONCE ONE 04/26 1530 DC 04/26 Dextrose/Water 100 ML IV 04/26 1929 1650 Olanzapine 2.5 MG QPM 04/26 2200 AC 04/26 PO 2203 Olanzapine 10 MG QPM PRN 04/26 220 AC PO Olanzapine 10 MG QPM 04/26 2200 CAN PO Omeprazole 20 MG DAILY AC 04/27 0700 AC 04/27 PO 0523 Potassium Chloride 20 MEQ Q10H 04/26 1500 AC 04/27 Sodium Chloride 1,000 ML IV 0523 Sodium Chloride 1,000 ML Q10H 04/26 2345 AC IV Sodium Chloride 1,000 ML BOLUS ONE 04/26 1330 DC 04/26 IV 04/26 1429 1706 Sodium Chloride 1,000 ML BOLUS ONE 04/26 1330 DC 04/26 IV 04/26 1429 1811 Sodium Chloride 1,000 ML BOLUS ONE 04/26 1215 DC 04/26 IV 04/26 1314 1545 Sodium Chloride 1,000 ML BOLUS ONE 04/26 1215 DC 04/26 IV 04/26 1314 1214 Findings Pertinent Lab/Issac Results: Laboratory Tests 04/27 04/27 04/26 04/26 04/26 0710 0110 2200 1930 1900 Chemistry Sodium (137 - 145 mmol/L) Pending 139 138 Cancelled 138 Potassium (3.5 - 5.1 mmol/L) Pending 3.7 3.9 Cancelled 3.8 Chloride (98 - 107 mmol/L) Pending 103 100 Cancelled 102 Carbon Dioxide (22 - 30 mmol/L) Pending 20 L 19 L Cancelled 16 L Anion Gap (5 - 16) Pending 15 18 H Cancelled 20 H BUN (9 - 20 mg/dL) Pending 9 8 L Cancelled 8 L Creatinine (0.7 - 1.2 mg/dL) Pending 0.6 L 0.7 Cancelled 0.6 L Estimated GFR (>60 ml/min) > 60 > 60 > 60 BUN/Creatinine Ratio (7 - 25 %) Pending 15.0 11.4 Cancelled 13.3 Hematology CBC w Diff Pending WBC Pending RBC Pending Hgb Pending Hct Pending MCV Pending MCH Pending RDW Pending Plt Count Pending MPV Pending PUBS MCHC Pending 04/26 04/26 04/26 1730 1455 1225 Blood Gas Bicarbonate Actual (22 - 26 MEQ/L) 13 L Mixed VBG pH (7.31 - 7.41 PH) 7.41 Mixed VBG pCO2 (41 - 51 TORR) 21 L Mixed VBG O2 Saturation (35 - 45 TORR) 71 H P-50 (Temp Corrected) N Carboxyhemoglobin (1.5 - 5.0 %) 0.3 L O2 Concentration % .21 O2 Delivery Method RA Chemistry Sodium (137 - 145 mmol/L) Cancelled 139 Potassium (3.5 - 5.1 mmol/L) Cancelled 3.7 Chloride (98 - 107 mmol/L) Cancelled 98 Carbon Dioxide (22 - 30 mmol/L) Cancelled 18 L Anion Gap (5 - 16) Cancelled 24 H BUN (9 - 20 mg/dL) Cancelled 11 Creatinine (0.7 - 1.2 mg/dL) Cancelled 0.7 Estimated GFR (>60 ml/min) > 60 BUN/Creatinine Ratio (7 - 25 %) Cancelled 15.7 Miscellaneous Phlebotomy Draw Site RIGHT ARM 04/26 04/26 1200 1119 Chemistry Lactic Acid (0.7 - 2.1 mmol/L) 1.1 Urines Urine Color (YEL,AMB,STR) STRAW Urine Clarity (CLEAR) CLEAR Urine pH (5.0 - 8.0) 6.0 Ur Specific [place] (1.001 - 1.035) 1.010 Urine Protein (NEG,<30 MG/DL) NEG Urine Ketones (NEG) >=80 Urine Nitrite (NEG) NEG Urine Bilirubin (NEG) NEG Urine Urobilinogen (0.1 - 1.0 EU/dl) 0.2 Ur Leukocyte Esterase (NEG) NEG Ur Microscopic EXAM NOT REQUIRED Urine Hemoglobin (NEG) NEG Urine Glucose (N MG/DL) >=1000 H 04/26 1119 Chemistry Sodium (137 - 145 mmol/L) 134 L Potassium (3.5 - 5.1 mmol/L) 4.3 Chloride (98 - 107 mmol/L) 89 L Carbon Dioxide (22 - 30 mmol/L) 19 L Anion Gap (5 - 16) 26 H BUN (9 - 20 mg/dL) 14 Creatinine (0.7 - 1.2 mg/dL) 0.8 Estimated GFR (>60 ml/min) > 60 BUN/Creatinine Ratio (7 - 25 %) 17.5 Glucose (65 - 99 mg/dL) 547 *H Hemoglobin A1c (4.2 - 5.8 %) 16.2 H Serum Osmolality (285 - 295 MOSM/KG) 307 H Calcium (8.4 - 10.2 mg/dL) 10.0 Magnesium (1.6 - 2.3 mg/dL) 1.6 Total Bilirubin (0.2 - 1.3 mg/dL) 0.5 AST (17 - 59 U/L) 18 ALT (21 - 72 U/L) 33 Alkaline Phosphatase (< 127 U/L) 187 H Troponin I (<0.11 ng/ml) < 0.01 Total Protein (6.3 - 8.2 g/dL) 7.8 Albumin (3.5 - 5.0 g/dL) 4.6 Globulin (1.9 - 4.2 gm/dL) 3.2 Albumin/Globulin Ratio (1.1 - 2.2 %) 1.4 Triglycerides (<150 mg/dL) 1254 H Cholesterol (< 200 MG/DL) 250 H LDL Cholesterol Direct (<100 mg/dL) 60.01 LDL Cholesterol, Calc (65 - 129 MG/DL) ND HDL Cholesterol (40 - 60 mg/dL) 27 L Cholesterol/HDL Ratio (0.00 - 4.88 %) 9 H TSH (0.270 - 4.200 uIU/mL) 3.900 Hematology CBC w Diff NO MAN DIFF REQ WBC (4.8 - 10.8 /CUMM) 3.9 L RBC (4.70 - 6.10 /CUMM) 3.96 L Hgb (14.0 - 18.0 G/DL) 12.3 L Hct (42 - 52 %) 36.2 L MCV (80.0 - 94.0 FL) 91.3 MCH (27.0 - 31.0 PG) 31.0 RDW (11.5 - 14.5 %) 17.5 H Plt Count (130 - 400 /CUMM) 216 MPV (7.4 - 10.4 FL) 9.6 Gran % (42.2 - 75.2 %) 36.1 L Lymphocytes % (20.5 - 51.1 %) 45.8 Monocytes % (1.7 - 9.3 %) 12.7 H Eosinophils % (0 - 5 %) 4.7 Basophils % (0.0 - 2.0 %) 0.7 Absolute Granulocytes (1.4 - 6.5 /CUMM) 1.4 Absolute Lymphocytes (1.2 - 3.4 /CUMM) 1.8 Absolute Monocytes (0.10 - 0.60 /CUMM) 0.5 Absolute Eosinophils (0.0 - 0.7 /CUMM) 0.2 Absolute Basophils (0.0 - 0.2 /CUMM) 0 PUBS MCHC (33.0 - 37.0 G/DL) 34.0 Toxicology Acetone Level (NEGATIVE) POSITIVE AT 1:16 DIL
[2017-04-27 08:55] LABS: ABSOLUTE LYMPH COUNT 2.1 /CUMM (1.2-3.4); BASOPHIL % 0.7 % (0.0-2.0); EOSINOPHIL % 7.6 % (0-5); GRANULOCYTE % 21.7 % (42.2-75.2); MEAN CORPUSCULAR HGB 31.1 PG (27.0-31.0); MEAN CORPUSCULAR HGB CONC 33.6 G/DL (33.0-37.0); MEAN CORPUSCULAR VOLUME 92.6 FL (80.0-94.0); MEAN PLATELET VOLUME 9.3 FL (7.4-10.4); PLATELET COUNT 184 /CUMM (130-400); RBC DISTRIBUTION WIDTH 18.5 % (11.5-14.5); RED BLOOD CELL CT 3.24 /CUMM (4.70-6.10); WHITE BLOOD CELL COUNT 3.6 /CUMM (4.8-10.8)
--- NOTE | 2017-04-27 10:59 | Cons- Psychiatry ---
See Addendum Psychiatric Consult Date of Consult: 04/27/17 Reason for Consult: "SCHIZOAFFECTIVE DISORDER" History of Present Illness: 46 M sent to the ED by VIVIANA Justin at [facility] for hyperglycemia, and was admitted for DKA and new onset diabetes. He is under care at [facility] for schizoaffective disorder. CLAUDINE in chart for [facility], provider. The patient has been admitted to [facility] from 03/04/16 through 08/24/16 for psychosis. He is usually not compliant with psychotropic meds, per his clinical coordinator at [facility]. Last medication reconciliation from [facility], undated, but showing latest orders, as of 04/21/17: Benztropine 0.5 mg PO 2X/day Depakote DR 500 mg X 2 tablets (1000 mg) PO 2X/day Haldol decanoate 50 mg/mL X 1 mL IM every two weeks Haloperidol 15 mg PO 2X/day Neurontin 300 mg PO 4X/day Olanzapine 2.5 mg PO at bedtime The patient has [facility] service daily for med pre-pour. His mother, Daisy Hill, is his conservator, . She reports that the patient was diagnosed with schizoaffective disorder 11 years ago. He spent 10 months in [facility] and [facility] facilities in 2016/2016 for psychosis. The patient reports traveling to [place], which the mother confirms happened before his diagnosis. The patient reports that he completed a 4 year college in [place] for political science and criminal justice. Allergies: Coded Allergies: NO KNOWN ALLERGIES (01/21/11) Current Medications: Current Medications Sig/Gee Start time Last Medication Dose Route Stop Time Status Admin Acetaminophen 325 MG Q6P PRN 04/26 1330 AC PO Albuterol Sulfate 2 PUF Q4-6 PRN PRN 04/26 1430 AC INH Amlodipine Besylate 10 MG DAILY 04/26 1430 AC 04/27 PO 0903 Atorvastatin Calcium 20 MG DAILY 04/27 1030 AC PO Benztropine Mesylate 0.5 MG BID 04/26 2200 AC 04/27 PO 0902 Cholecalciferol 1,000 IU DAILY 04/27 1000 AC 04/27 PO 09 Divalproex Sodium 1,000 MG BID 04/26 2200 AC 04/27 PO 0904 Enoxaparin Sodium 40 MG DAILY 04/26 1321 AC 04/27 SC 0902 Gabapentin 0 .STK-MED ONE 04/26 1911 DC PO Gabapentin 300 MG 4 TIMES/DAY 04/26 1800 AC 04/27 PO 0903 Haloperidol 15 MG BID 04/26 2200 AC 04/27 PO 0903 Influenza Virus 0.5 ML ONCE ONE 04/26 2115 DC Vaccine IM 04/26 211 Insulin Aspart 4 UNITS ONCE ONE 04/26 2000 DC 04/26 SC 04/26 2000 215 Insulin Aspart 0 TIDAC/HS 04/26 1700 AC 04/27 SC 0900 Insulin Detemir 10 UNITS BID 04/26 1500 AC 04/27 SC 0901 Insulin Human Regular 100 UNIT ONCE ONE 04/26 1315 CAN Sodium Chloride 100 ML IV 04/26 1316 Insulin Human Regular 10 UNITS ONCE ONE 04/26 1215 DC 04/26 IV 04/26 1216 1214 Levothyroxine Sodium 0.05 MG DAILY AC 04/27 0700 AC 04/27 PO 0523 Losartan Potassium 50 MG DAILY 04/27 1000 AC 04/27 PO 0905 Magnesium Sulfate 1 GM ONCE ONE 04/26 1530 DC 04/26 Dextrose/Water 100 ML IV 04/26 1929 1650 Olanzapine 2.5 MG QPM 04/26 2200 AC 04/26 PO 2203 Olanzapine 10 MG QPM PRN 04/26 2200 AC PO Olanzapine 10 MG QPM 04/26 2200 CAN PO Omeprazole 20 MG DAILY AC 04/27 0700 AC 04/27 PO 0523 Potassium Chloride 20 MEQ Q10H 04/26 1500 AC 04/27 Sodium Chloride 1,000 ML IV 0523 Sodium Chloride 1,000 ML Q10H 04/26 2345 DC IV Sodium Chloride 1,000 ML BOLUS ONE 04/26 1330 DC 04/26 IV 04/26 1429 1706 Sodium Chloride 1,000 ML BOLUS ONE 04/26 1330 DC 04/26 IV 04/26 1429 1811 Sodium Chloride 1,000 ML BOLUS ONE 04/26 1215 DC 04/26 IV 04/26 1314 1545 Sodium Chloride 1,000 ML BOLUS ONE 04/26 1215 DC 04/26 IV 04/26 1314 1214 Past History Past Medical History Neurological: seizure EENT: allergies Cardiovascular: hypertension Respiratory: NONE Gastrointestinal: GERD Hepatic: NONE Renal: NONE Musculoskeletal: NONE Psychiatric: schizo affective disorder Endocrine: NONE Blood Disorders: NONE Cancer(s): NONE SUPPLIER QUALITY SPECIALIST/Reproductive: NONE Past Surgical History Surgical History: non-contributory Psychosocial History Strengths/Capabilities: college graduate/supportive family, involved with care Physical Limitations (Interventions): none Psychiatric Treatment History Psych Treatment Psychiatric Treatment Yes Inpatient Treatment Yes Outpatient Treatment Yes Location of Treatment Inpt: [place] [place] [facility] [place] Reason for Treatment Psychosis Dates of Treatment 03/04/16 - 08/24/16 Response to Treatment Unknown Diagnosis: schizoaffective D/O Risk Factors: high anxiety/distress, SA/MH hospitalized, poor impulse control, lives alone, male, Lives in supervised housing Substance Use/Abuse History Drug Use/Abuse Substances Used/Abused No (Denies) Substance Abuse Treatment Substance Abuse Treatment Past Substance Abuse [place] No Assessment/Plan Mental Status Orientation: Person, Place, Situation Affect: Constricted Speech: Evasive Neuro-vegetative: WNL Mental Status Exam: A+O Denies AH or VH and presents no luke delusions Denies SI or HI, "I enjoy life" Insight and judgement are poor about his psychiatry diagnosis. He does recognize the need to take his cardiac medications, and will require further teaching on new onset diabetes management. Reports rare alcohol use. He does not like the sedation caused by his psychotropics. Lab Results: Laboratory Tests 04/27 04/27 04/26 0710 0110 2200 Chemistry Sodium (137 - 145 mmol/L) 140 139 138 Potassium (3.5 - 5.1 mmol/L) 4.0 3.7 3.9 Chloride (98 - 107 mmol/L) 105 103 100 Carbon Dioxide (22 - 30 mmol/L) 20 L 20 L 19 L Anion Gap (5 - 16) 15 15 18 H BUN (9 - 20 mg/dL) 8 L 9 8 L Creatinine (0.7 - 1.2 mg/dL) 0.5 L 0.6 L 0.7 Estimated GFR (>60 ml/min) > 60 > 60 > 60 BUN/Creatinine Ratio (7 - 25 %) 16.0 15.0 11.4 Triglycerides (<150 mg/dL) 809 H Cholesterol (< 200 MG/DL) 207 H LDL Cholesterol Direct (<100 mg/dL) 72.57 LDL Cholesterol, Calc (65 - 129 mg/dL) ND HDL Cholesterol (40 - 60 mg/dL) 22 L Cholesterol/HDL Ratio (0.00 - 4.88 %) 9 H Hematology CBC w Diff MAN DIFF ORDERED WBC (4.8 - 10.8 /CUMM) 3.6 L RBC (4.70 - 6.10 /CUMM) 3.24 L Hgb (14.0 - 18.0 G/DL) 10.1 L Hct (42 - 52 %) 30.0 L MCV (80.0 - 94.0 FL) 92.6 MCH (27.0 - 31.0 PG) 31.1 H RDW (11.5 - 14.5 %) 18.5 H Plt Count (130 - 400 /CUMM) 184 MPV (7.4 - 10.4 FL) 9.3 Gran % (42.2 - 75.2 %) 21.7 L Lymphocytes % (20.5 - 51.1 %) 58.8 H Monocytes % (1.7 - 9.3 %) 11.2 H Eosinophils % (0 - 5 %) 7.6 H Basophils % (0.0 - 2.0 %) 0.7 Absolute Granulocytes (1.4 - 6.5 /CUMM) 0.8 L Segmented Neutrophils (42.2 - 75.2 %) 19 L Band Neutrophils (0.0 - 5.0 %) 1 Absolute Lymphocytes (1.2 - 3.4 /CUMM) 2.1 Lymphocytes (20.5 - 51.1 %) 49 Monocytes (1.7 - 9.3 %) 16 H Absolute Monocytes (0.10 - 0.60 /CUMM) 0.4 Eosinophils (0 - 5.0 %) 15 H Absolute Eosinophils (0.0 - 0.7 /CUMM) 0.3 Absolute Basophils (0.0 - 0.2 /CUMM) 0 Nucleated RBCs (0.0 - 0.0 /100WBC) 1 H Platelet Estimate (ADEQUATE) ADEQUATE Normocytic RBCs VERIFIED Normochromic RBCs VERIFIED PUBS MCHC (33.0 - 37.0 G/DL) 33.6 Toxicology Valproic Acid (50 - 120 ug/mL) 40.9 L 04/26 04/26 04/26 04/26 1930 1900 1730 1455 Chemistry Sodium (137 - 145 mmol/L) Cancelled 138 Cancelled 139 Potassium (3.5 - 5.1 mmol/L) Cancelled 3.8 Cancelled 3.7 Chloride (98 - 107 mmol/L) Cancelled 102 Cancelled 98 Carbon Dioxide (22 - 30 mmol/L) Cancelled 16 L Cancelled 18 L Anion Gap (5 - 16) Cancelled 20 H Cancelled 24 H BUN (9 - 20 mg/dL) Cancelled 8 L Cancelled 11 Creatinine (0.7 - 1.2 mg/dL) Cancelled 0.6 L Cancelled 0.7 Estimated GFR (>60 ml/min) > 60 > 60 BUN/Creatinine Ratio (7 - 25 %) Cancelled 13.3 Cancelled 15.7 04/26 04/26 1225 1200 Blood Gas Bicarbonate Actual (22 - 26 MEQ/L) 13 L Mixed VBG pH (7.31 - 7.41 PH) 7.41 Mixed VBG pCO2 (41 - 51 TORR) 21 L Mixed VBG O2 Saturation (35 - 45 TORR) 71 H P-50 (Temp Corrected) N Carboxyhemoglobin (1.5 - 5.0 %) 0.3 L O2 Concentration % .21 O2 Delivery Method RA Miscellaneous Phlebotomy Draw Site RIGHT ARM Urines Urine Color (YEL,AMB,STR) STRAW Urine Clarity (CLEAR) CLEAR Urine pH (5.0 - 8.0) 6.0 Ur Specific [place] (1.001 - 1.035) 1.010 Urine Protein (NEG,<30 MG/DL) NEG Urine Ketones (NEG) >=80 Urine Nitrite (NEG) NEG Urine Bilirubin (NEG) NEG Urine Urobilinogen (0.1 - 1.0 EU/dl) 0.2 Ur Leukocyte Esterase (NEG) NEG Ur Microscopic EXAM NOT REQUIRED Urine Hemoglobin (NEG) NEG Urine Glucose (N MG/DL) >=1000 H Diffential Diagnosis: Schizoaffective d/o New onset diabetes Impression: The patient has recently experienced weight loss, secondary to new diagnosis of diabetes mellitus. The patient does not like to take his medications, due to sedation. Notes from his provider at [facility] indicate that the patient was given information on newer antipsychotics in February,, Vraylar and Latuda. His mother, conservator, will ask about these at the next visit to [facility] on . Next PCP visit at [facility] is in two weeks. Provisional Treatment Plan: 1. Continue medications as indicated in the HPI, above. 2. Discharge summary to [facility] PCP and Care 3. I ordered valproic acid level, which retuned as 40.9, or slightly subtherapeutic. The patient is clear for discharge psychiatrically, but we will look in on him on 04/28/17, if he is still here.
--- NOTE | 2017-04-27 11:16 | PN- Housestaff ---
Subjective Follow-up For: DKA hyperglycemia new onset diabetes Subjective: No acute events overnight. Patient states he is feeling better today. Review of Systems Constitutional: Reports: no symptoms. Cardiovascular: Reports: no symptoms. Respiratory: Reports: no symptoms. Gastrointestinal: Reports: no symptoms. Genitourinary: Reports: no symptoms. Musculoskeletal: Reports: no symptoms. Objective Last 24 Hrs of Vital Signs/I&O Vital Signs Date Time Temp Pulse Resp B/P B/P Pulse O2 O2 Flow FiO2 Mean Ox Delivery Rate 04/27 1342 99.0 85 20 140/83 94 Room Air 04/27 0905 71 128/74 04/27 0903 71 128/74 04/27 0610 97.9 71 18 128/74 96 04/26 2211 97.5 90 20 136/78 95 Room Air 04/26 1944 Room Air Intake & Output 04/27 1600 04/27 0800 04/27 0000 Intake Total 9708 546 3730 Output Total 400 Balance 2155 780 8186 Intake, IV 750 2000 Intake, Oral 720 240 240 Number 1 Bowel Movements Output, Urine 400 Patient 215 lb Weight Weight Reported by Patient Measurement Method Physical Exam General Appearance: Alert, Oriented X3, Cooperative, No Acute Distress Cardiovascular: Regular Rate, Normal S1, Normal S2 Lungs: Clear to Auscultation, Normal Air Movement Abdomen: Normal Bowel Sounds, Soft, No Tenderness Extremities: 2+ radial pulses Current Medications: Current Medications Sig/Gee Start time Last Medication Dose Route Stop Time Status Admin Acetaminophen 325 MG Q6P PRN 04/26 1330 AC PO Albuterol Sulfate 2 PUF Q4-6 PRN PRN 04/26 1430 AC INH Amlodipine Besylate 10 MG DAILY 04/26 1430 AC 04/27 PO 0903 Atorvastatin Calcium 20 MG DAILY 04/27 1030 AC 04/27 PO 1200 Benztropine Mesylate 0.5 MG BID 04/26 2200 AC 04/27 PO 0902 Cholecalciferol 1,000 IU DAILY 04/27 1000 AC 04/27 PO 0904 Divalproex Sodium 1,000 MG BID 04/26 2200 AC 04/27 PO 0904 Enoxaparin Sodium 40 MG DAILY 04/26 1321 AC 04/27 SC 0902 Gabapentin 0 .STK-MED ONE 04/26 1911 DC PO Gabapentin 300 MG 4 TIMES/DAY 04/26 1800 AC 01/11 PO 1725 Haloperidol 15 MG BID 04/26 2200 AC 04/27 PO 0903 Influenza Virus 0.5 ML ONCE ONE 04/26 2114 DC Vaccine IM 04/26 2115 Insulin Aspart 4 UNITS ONCE ONE 04/26 1999 DC 04/26 SC 04/26 Insulin Aspart 0 TIDAC/HS 04/26 1700 AC 04/27 SC 1725 Insulin Detemir 10 UNITS BID 04/26 1500 AC 04/27 SC 0901 Levothyroxine Sodium 0.05 MG DAILY AC 04/27 0700 AC 04/27 PO 0523 Losartan Potassium 50 MG DAILY 04/27 1000 AC 04/27 PO 0905 Magnesium Sulfate 1 GM ONCE ONE 04/26 1530 DC 04/26 Dextrose/Water 100 ML IV 04/26 1929 1650 Olanzapine 2.5 MG QPM 04/26 2200 AC 04/26 PO 2203 Olanzapine 10 MG QPM PRN 04/26 2200 AC PO Olanzapine 10 MG QPM 04/26 2200 CAN PO Omeprazole 20 MG DAILY AC 04/27 0700 AC 04/27 PO 0523 Potassium Chloride 20 MEQ Q10H 04/26 1500 AC 04/27 Sodium Chloride 1,000 ML IV 1541 Sodium Chloride 1,000 ML Q10H 04/26 2345 DC IV Last 24 Hrs of Lab/Issac Results Last 24 Hrs of Labs/Mics: Laboratory Tests 04/27/17 0710: Anion Gap 15, Estimated GFR > 60, BUN/Creatinine Ratio 16.0, CBC w Diff MAN DIFF ORDERED, RBC 3.24 L, MCV 92.6, MCH 31.1 H, RDW 18.5 H, MPV 9.3, Gran % 21.7 L, Lymphocytes % 58.8 H, Monocytes % 11.2 H, Eosinophils % 7.6 H, Basophils % 0.7, Absolute Granulocytes 0.8 L, Segmented Neutrophils 19 L, Band Neutrophils 1, Absolute Lymphocytes 2.1, Lymphocytes 49, Monocytes 16 H, Absolute Monocytes 0.4, Eosinophils 15 H, Absolute Eosinophils 0.3, Absolute Basophils 0, Nucleated RBCs 1 H, Platelet Estimate ADEQUATE, Normocytic RBCs VERIFIED, Normochromic RBCs VERIFIED, PUBS MCHC 33.6 04/27/17 0110: Anion Gap 15, Estimated GFR > 60, BUN/Creatinine Ratio 15.0, Triglycerides 809 H, Cholesterol 207 H, LDL Cholesterol Direct 72.57, LDL Cholesterol, Calc ND, HDL Cholesterol 22 L, Cholesterol/HDL Ratio 9 H, Valproic Acid 40.9 L 04/26/17 2200: Anion Gap 18 H, Estimated GFR > 60, BUN/Creatinine Ratio 11.4 04/26/17 1930: Sodium Cancelled, Potassium Cancelled, Chloride Cancelled, Carbon Dioxide Cancelled, Anion Gap Cancelled, BUN Cancelled, Creatinine Cancelled, BUN/ Creatinine Ratio Cancelled 04/26/17 1900: Anion Gap 20 H, Estimated GFR > 60, BUN/Creatinine Ratio 13.3 Assessment/Plan Assessment: 46-year-old male with past medical history of hypertension, GERD and schizoaffective disorder on multiple psychiatric medications who is here with DKA and new onset diabetes. #mild DKA with new onset diabetes Hgb A 1C 16.2 Initial labs: glucose 547, anion gap 26, K+ Anion gap currently 15 Most likely new onset diabetes from obesity 2/2 to psychiatric emdications -cont insulin per endocrinology and levemir -cont IVF with K -monitor BEP #shizoaffective disorder -cont olanzapine, haldol, depakote, cogentin, gabapentin #hyperlipidema triglycerides 1254 -> 809, cholesterol 250 -> 207, LDL 72, HDL 22, -start atorvastain #htn -cont losartan, amlodipine, #vitamins -cont vit d #gerd -cont oemprazole #hypothyroid -cont synthroid #sob -cont albuterol #DVT prophylaxis lovenox #FULL CODE Problem List: 1. DKA (diabetic ketoacidoses) 2. Schizoaffective disorder Pain Ratin Pain Location: none Pain Goal: Pain 4 or less Pain Plan: pain pathway Tomorrow's Labs & Rationales: cbc bep lipid panel
--- NOTE | 2017-04-27 13:27 | PN- Att Addend ---
Attending Addendum Attending Brief Note Patient seen and examined, denies any complaints. Patient is admitted with hyperglycemia, mild DKA as well as new onset diabetes. He also found to have significant hyperlipidemia/hypertriglyceridemia. Vital Signs Date Time Temp Pulse Resp B/P B/P Pulse O2 O2 Flow FiO2 Mean Ox Delivery Rate 04/27 904 71 128/74 04/27 0903 71 128/74 04/27 0610 97.9 71 18 128/74 96 04/26 2211 97.5 90 20 136/78 95 Room Air 04/26 1944 Room Air 04/26 1831 97.1 87 18 133/79 96 04/26 1705 75 133/70 04/26 1651 96.8 75 16 133/70 95 Room Air 04/26 1408 97.3 89 18 138/74 95 on exam; aox3, nad. cv; s1,s2, rrr resp; clear abd; soft, nt, bs+ ext; no edema. Laboratory Tests 04/27 04/27 04/26 0710 0110 2200 Chemistry Sodium (137 - 145 mmol/L) 140 139 138 Potassium (3.5 - 5.1 mmol/L) 4.0 3.7 3.9 Chloride (98 - 107 mmol/L) 105 103 100 Carbon Dioxide (22 - 30 mmol/L) 20 L 20 L 19 L Anion Gap (5 - 16) 15 15 18 H BUN (9 - 20 mg/dL) 8 L 9 8 L Creatinine (0.7 - 1.2 mg/dL) 0.5 L 0.6 L 0.7 Estimated GFR (>60 ml/min) > 60 > 60 > 60 BUN/Creatinine Ratio (7 - 25 %) 16.0 15.0 11.4 Triglycerides (<150 mg/dL) 809 H Cholesterol (< 200 MG/DL) 207 H LDL Cholesterol Direct (<100 mg/dL) 72.57 LDL Cholesterol, Calc (65 - 129 mg/dL) ND HDL Cholesterol (40 - 60 mg/dL) 22 L Cholesterol/HDL Ratio (0.00 - 4.88 %) 9 H Hematology CBC w Diff MAN DIFF ORDERED WBC (4.8 - 10.8 /CUMM) 3.6 L RBC (4.70 - 6.10 /CUMM) 3.24 L Hgb (14.0 - 18.0 G/DL) 10.1 L Hct (42 - 52 %) 30.0 L MCV (80.0 - 94.0 FL) 92.6 MCH (27.0 - 31.0 PG) 31.1 H RDW (11.5 - 14.5 %) 18.5 H Plt Count (130 - 400 /CUMM) 184 MPV (7.4 - 10.4 FL) 9.3 Gran % (42.2 - 75.2 %) 21.7 L Lymphocytes % (20.5 - 51.1 %) 58.8 H Monocytes % (1.7 - 9.3 %) 11.2 H Eosinophils % (0 - 5 %) 7.6 H Basophils % (0.0 - 2.0 %) 0.7 Absolute Granulocytes (1.4 - 6.5 /CUMM) 0.8 L Segmented Neutrophils (42.2 - 75.2 %) 19 L Band Neutrophils (0.0 - 5.0 %) 1 Absolute Lymphocytes (1.2 - 3.4 /CUMM) 2.1 Lymphocytes (20.5 - 51.1 %) 49 Monocytes (1.7 - 9.3 %) 16 H Absolute Monocytes (0.10 - 0.60 /CUMM) 0.4 Eosinophils (0 - 5.0 %) 15 H Absolute Eosinophils (0.0 - 0.7 /CUMM) 0.3 Absolute Basophils (0.0 - 0.2 /CUMM) 0 Nucleated RBCs (0.0 - 0.0 /100WBC) 1 H Platelet Estimate (ADEQUATE) ADEQUATE Normocytic RBCs VERIFIED Normochromic RBCs VERIFIED PUBS MCHC (33.0 - 37.0 G/DL) 33.6 Toxicology Valproic Acid (50 - 120 ug/mL) 40.9 L 04/26 04/26 04/26 04/26 1930 1900 1730 1455 Chemistry Sodium (137 - 145 mmol/L) Cancelled 138 Cancelled 139 Potassium (3.5 - 5.1 mmol/L) Cancelled 3.8 Cancelled 3.7 Chloride (98 - 107 mmol/L) Cancelled 102 Cancelled 98 Carbon Dioxide (22 - 30 mmol/L) Cancelled 16 L Cancelled 18 L Anion Gap (5 - 16) Cancelled 20 H Cancelled 24 H BUN (9 - 20 mg/dL) Cancelled 8 L Cancelled 11 Creatinine (0.7 - 1.2 mg/dL) Cancelled 0.6 L Cancelled 0.7 Estimated GFR (>60 ml/min) > 60 > 60 BUN/Creatinine Ratio (7 - 25 %) Cancelled 13.3 Cancelled 15.7 A/P; 46 y/o M with pmh sig for hypertension,schizo affective disorder admitted with mild DKA, hyperglycemia and new onset diabetes. Patient also found to have hypertriglyceridemia. Appreciate input from endocrinology and psychiatry. We have started the patient on low-dose statin. Please continue the psych medications as recommended by psychiatry. Patient has been started on basal as well as sliding scale insulin. We'll monitor the blood sugars. If Blood sugars remained stable in the next 24 hours, possible discharge home with outpatient follow-up. DVT px: lovenx.
[2017-04-27 13:42] VITALS: BP 140/83
[2017-04-27 21:48] VITALS: BP 138/82
[2017-04-28 06:34] VITALS: BP 140/78
--- NOTE | 2017-04-28 07:15 | PN- Diabetes ---
Assessment/Plan Assessment: 46-year-old male with a known history of schizoaffective disorder presented with high blood sugar and evidence of ketosis with an increased anion gap and reduce bicarbonate but a normal venous pH. The patient feels okay this morning except for feeling tired. The patient is eating and he is not vomiting. Labs yesterday show that his hematocrit fell from 36 on admission to 30. He was hydrated but this does represent an anemia. His white blood count was also low. His platelet count is normal. Yesterday the patient's blood sugars were high. Fasting blood sugar in the morning was 125 before lunch 223 before dinner 386 and at bedtime to 228. Plan: Suggest that we check the patient's anti-ria antibody and C-peptide level on fasting blood work. In view of the fact that the patient did have significant ketosis I am reluctant to begin him on metformin at this time. I would begin glimepiride 4 mg once a day in the morning. In addition I would switch him to 70/30 NovoLog mix 15 units twice a day given before breakfast and before dinner. This is in an effort to simplify his regimen to something that a nurse may be able to help him manage at home. The patient's anemia and low white blood count need to be evaluated further. Repeat CBC needs to be done. A folate and B12 level should be done. His stool should be checked for blood. The patient's triglyceride level is also elevated at 809 with a total cholesterol of 207. We could consider placing him on fenofibrate once a day. The patient wants to go home but he needs to stay in the hospital until we can arrive at a good regimen for his diabetes. The patient's IV fluids should be stopped. Subjective Subjective: Feels tired Review of Systems Constitutional: Denies: chills, fever. Cardiovascular: Denies: chest pain. Respiratory: Denies: short of breath. Gastrointestinal: Denies: nausea, vomiting. Objective Last 24 Hrs of Vital Signs/I&O Vital Signs Date Time Temp Pulse Resp B/P B/P Pulse O2 O2 Flow FiO2 Mean Ox Delivery Rate 04/28 0634 97.7 76 18 140/78 93 Room Air 04/27 2148 98.0 86 18 138/82 95 Room Air 04/27 1342 99.0 85 20 140/83 94 Room Air 04/27 0905 71 128/74 04/27 0903 71 128/74 Intake & Output 04/28 0804/28 0000 04/27 1600 Intake Total 5202 412 5292 Output Total Balance 6061 745 1819 Intake, IV 800 300 750 Intake, Oral 200 240 720 Number 1 Bowel Movements Vital Signs Date Time Temp Pulse Resp B/P B/P Pulse O2 O2 Flow FiO2 Mean Ox Delivery Rate 04/28 0634 97.7 76 18 140/78 93 Room Air 04/27 2148 98.0 86 18 138/82 95 Room Air 04/27 1342 99.0 85 20 140/83 94 Room Air 04/27 09 71 128/74 04/27 0903 71 128/74 Intake & Output 04/28 0804/28 0000 04/27 1600 Intake Total 8389 717 2694 Output Total Balance 4968 782 5785 Intake, IV 800 300 750 Intake, Oral 200 240 720 Number 1 Bowel Movements Physical Exam General Appearance: alert, awake, comfortable Neck: normal inspection Respiratory: normal breath sounds Cardiovascular: regular rate/rhythm Abdomen: normal bowel sounds Extremities: normal inspection Current Medications: Current Medications Sig/Gee Start time Last Medication Dose Route Stop Time Status Admin Acetaminophen 325 MG Q6P PRN 04/26 1330 AC PO Albuterol Sulfate 2 PUF Q4-6 PRN PRN 04/26 1430 AC INH Amlodipine Besylate 10 MG DAILY 04/26 1430 AC 04/27 PO 0903 Atorvastatin Calcium 20 MG DAILY 04/27 1030 AC 04/27 PO 1200 Benztropine Mesylate 0.5 MG BID 04/26 2200 AC 04/27 PO 2209 Cholecalciferol 1,000 IU DAILY 04/27 1000 AC 04/27 PO 0904 Divalproex Sodium 1,000 MG BID 04/26 2200 AC 04/27 PO 2209 Enoxaparin Sodium 40 MG DAILY 04/26 1321 AC 04/27 SC 0902 Gabapentin 300 MG 4 TIMES/DAY 04/26 1800 AC 04/27 PO 2209 Haloperidol 15 MG BID 04/26 2199 AC 04/27 PO 2209 Insulin Aspart 0 TIDAC/HS 04/26 1700 AC 04/27 SC 2209 Insulin Detemir 10 UNITS BID 04/26 1500 AC 04/27 SC 220 Levothyroxine Sodium 0.05 MG DAILY AC 04/27 0700 AC 04/28 PO 0611 Losartan Potassium 50 MG DAILY 04/27 1000 AC 04/27 PO 0905 Olanzapine 2.5 MG QPM 04/26 2199 AC 04/27 PO 2208 Olanzapine 10 MG QPM PRN 04/26 2199 AC PO Omeprazole 20 MG DAILY AC 04/27 0700 AC 04/28 PO 0611 Potassium Chloride 20 MEQ Q10H 04/26 1500 AC 04/28 Sodium Chloride 1,000 ML IV 0144 Sodium Chloride 1,000 ML Q10H 04/26 2345 DC IV
--- NOTE | 2017-04-28 08:49 | PN- Housestaff ---
Bryan ARRIAGA,[facility] 04/28/17 0849: Subjective Follow-up For: DKA Subjective: No acute events overnight. Reports minor constipation but doesnt want any laxatives. Patient states he is feeling better today. Asking to be dc'ed Review of Systems Constitutional: Reports: no symptoms. Cardiovascular: Reports: no symptoms. Respiratory: Reports: no symptoms. Gastrointestinal: Reports: no symptoms. Genitourinary: Reports: no symptoms. Musculoskeletal: Reports: no symptoms. Objective Last 24 Hrs of Vital Signs/I&O Vital Signs Date Time Temp Pulse Resp B/P B/P Pulse O2 O2 Flow FiO2 Mean Ox Delivery Rate 04/28 2234 97.9 81 18 138/87 94 Room Air 04/28 1550 98.4 94 20 124/78 96 Room Air 04/28 1030 76 140/78 04/28 1030 76 140/78 04/28 0634 97.7 76 18 140/78 93 Room Air Intake & Output 04/29 0800 04/29 0000 04/28 1600 Intake Total 550 1020 Output Total Balance 550 1020 Intake, IV 300 Intake, Oral 550 720 Number 1 Bowel Movements Patient 215 lb Weight Physical Exam General Appearance: Alert, Oriented X3, Cooperative, No Acute Distress Skin Temp/Moisture Exam: Cool/Dry Cardiovascular: Regular Rate, Normal S1, Normal S2 Lungs: Clear to Auscultation, Normal Air Movement Abdomen: Normal Bowel Sounds, Soft, No Tenderness Extremities: 2+ radial pulses Assessment/Plan Assessment: 46-year-old male with past medical history of hypertension, GERD and schizoaffective disorder on multiple psychiatric medications who is here with DKA and new onset diabetes. #mild DKA with new onset diabetes Hgb A 1C 16.2 Initial labs: glucose 547, anion gap 26, K+ Anion gap currently 17 Most likely new onset diabetes from obesity 2/2 to psychiatric emdications -cont diabetic meds per endo #shizoaffective disorder -cont olanzapine, haldol, depakote, cogentin, gabapentin #leukopenia Low risk of leukopenia from psych meds per literature search -f/u outpt heme onc #hyperlipidema triglycerides 1254 -> 809-> 661, cholesterol 250 -> 207->202, LDL 72 ->89, HDL 22 -> 23, -start fenofibrate #htn -cont losartan, amlodipine, #vitamins -cont vit d #gerd -cont oemprazole #hypothyroid -cont synthroid #sob -cont albuterol #DVT prophylaxis lovenox #FULL CODE Problem List: 1. DKA (diabetic ketoacidoses) 2. Leukopenia Pain Ratin Pain Location: none Pain Goal: Pain 4 or less Pain Plan: pain pathway Tomorrow's Labs & Rationales: cbc bep Debra Ramirez MD 04/28/17 1205: Attending MD Review Statement Attending Statement Attending MD Statement: examined this patient, discuss w/resident/PA/INNER TUBE TUBER MACHINE OPERATOR, agreed w/resident/PA/INNER TUBE TUBER MACHINE OPERATOR, reviewed EMR data (avail), discussed with nursing, discussed with case mgmt, reviewed images, amended to note Attending Assessment/Plan: Patient seen and examined, offers no complaints. Feels much better and wants to go home. Blood sugars are still not well controlled yet. Vital Signs Date Time Temp Pulse Resp B/P B/P Pulse O2 O2 Flow FiO2 Mean Ox Delivery Rate 04/28 0634 97.7 76 18 140/78 93 Room Air 04/27 2148 98.0 86 18 138/82 95 Room Air 04/27 1342 99.0 85 20 140/83 94 Room Air on exam; aox3, nad. cv; s1,s2, rrr resp; clear abd; soft, nt, bs+ ext; no edema. Laboratory Tests 04/28 04/28 0745 0600 Chemistry Sodium (137 - 145 mmol/L) 141 Potassium (3.5 - 5.1 mmol/L) 4.6 Chloride (98 - 107 mmol/L) 103 Carbon Dioxide (22 - 30 mmol/L) 20 L Anion Gap (5 - 16) 17 H BUN (9 - 20 mg/dL) 10 Creatinine (0.7 - 1.2 mg/dL) 0.6 L Estimated GFR (>60 ml/min) > 60 BUN/Creatinine Ratio (7 - 25 %) 16.7 C-Peptide Pending Iron (49 - 181 ug/dL) 161 TIBC (261 - 462 ug/dL) 340 Ferritin (17.9 - 464 ng/mL) 85.4 Triglycerides (<150 mg/dL) 661 H Cholesterol (< 200 MG/DL) 202 H LDL Cholesterol Direct (<100 mg/dL) 89.37 LDL Cholesterol, Calc (65 - 129 mg/dL) ND HDL Cholesterol (40 - 60 mg/dL) 23 L Cholesterol/HDL Ratio (0.00 - 4.88 %) 9 H Vitamin B12 (239 - 931 pg/mL) 779 Folate (2.76 - 20.0 ng/mL) 8.5 Hematology CBC w Diff NO MAN DIFF REQ WBC (4.8 - 10.8 /CUMM) 3.9 L RBC (4.70 - 6.10 /CUMM) 3.59 L Hgb (14.0 - 18.0 G/DL) 11.0 L Hct (42 - 52 %) 32.9 L MCV (80.0 - 94.0 FL) 91.7 MCH (27.0 - 31.0 PG) 30.7 RDW (11.5 - 14.5 %) 17.9 H Plt Count (130 - 400 /CUMM) 190 MPV (7.4 - 10.4 FL) 9.6 Gran % (42.2 - 75.2 %) 35.3 L Lymphocytes % (20.5 - 51.1 %) 47.7 Monocytes % (1.7 - 9.3 %) 11.9 H Eosinophils % (0 - 5 %) 4.6 Basophils % (0.0 - 2.0 %) 0.5 Absolute Granulocytes (1.4 - 6.5 /CUMM) 1.4 Absolute Lymphocytes (1.2 - 3.4 /CUMM) 1.9 Absolute Monocytes (0.10 - 0.60 /CUMM) 0.5 Absolute Eosinophils (0.0 - 0.7 /CUMM) 0.2 Absolute Basophils (0.0 - 0.2 /CUMM) 0 PUBS MCHC (33.0 - 37.0 G/DL) 33.5 A/P; 46 y/o M with pmh sig for hypertension,schizo affective disorder admitted with mild DKA, hyperglycemia and new onset diabetes. Patient also found to have hypertriglyceridemia. Insulin will be adjusted per endocrinology recommendations. Patient will require insulin teaching as well as diabetic teaching. Please consult nutrition. Please confirm with endocrinology about insulin regimen for home discharge. Prinivil but has been started. Please check stool for guaiac. We will try to look up the side effects of his psych medications to see if any of them can give anemia and leukopenia. Otherwise patient can follow-up with hematology as an outpatient. If blood sugars are stable by tomorrow then he can be discharged home. Patient on Lovenox for DVT prophylaxis.
[2017-04-28 09:10] LABS: ABSOLUTE BASOPHIL COUNT 0 /CUMM (0.0-0.2); ABSOLUTE EOSINOPHIL COUNT 0.2 /CUMM (0.0-0.7); ABSOLUTE GRANULOCYTE CT 1.4 /CUMM (1.4-6.5); ABSOLUTE LYMPH COUNT 1.9 /CUMM (1.2-3.4); ABSOLUTE MONOCYTE COUNT 0.5 /CUMM (0.10-0.60); BASOPHIL % 0.5 % (0.0-2.0); EOSINOPHIL % 4.6 % (0-5); HEMATOCRIT 32.9 % (42-52); MEAN CORPUSCULAR HGB 30.7 PG (27.0-31.0); MEAN CORPUSCULAR HGB CONC 33.5 G/DL (33.0-37.0); MEAN CORPUSCULAR VOLUME 91.7 FL (80.0-94.0); MEAN PLATELET VOLUME 9.6 FL (7.4-10.4); PLATELET COUNT 190 /CUMM (130-400); RBC DISTRIBUTION WIDTH 17.9 % (11.5-14.5); RED BLOOD CELL CT 3.59 /CUMM (4.70-6.10); WHITE BLOOD CELL COUNT 3.9 /CUMM (4.8-10.8)
[2017-04-28 09:34] LABS: GRANULOCYTE % 35.3 % (42.2-75.2)
[2017-04-28] MEDS ORDERED: TRICOR48 M1 PO (10:54)
--- NOTE | 2017-04-28 13:31 | Patient Discharge Instructions ---
Discharge Instructions General Discharge Information Special Instructions: Please follow up with your PCP in 1-2 weeks. Please follow up with your new cut off saw tender metal (Dr. Lui) in 1-2 weeks. Please follow up with heme/onc regarding your labs in 1-[address] Carlos Alberto Arevalo Please check your blood sugars before meals and at night. Please hold your insulin for blood sugar less than 150. Please continue your diet as instructed Please continue your medications as instructed Acute Coronary Syndrome Inclusion Criteria At DC or during hospital stay patient has or had the following: Discharge Core Measures Meds if any: Prescribed or Continued at Discharge Meds if any: NOT Prescribed or Continued at Discharge Congestive Heart Failure Inclusion Criteria At DC or during hospital stay patient has or had the following: Discharge Core Measures Meds if any: Prescribed or Continued at Discharge Meds if any: NOT Prescribed or Continued at Discharge Cerebrovascular accident Inclusion Criteria At DC or during hospital stay patient has or had the following: CVA/TIA Diagnosis No Discharge Core Measures Meds if any: Prescribed or Continued at Discharge Meds if any: NOT Prescribed or Continued at Discharge Venous thromboembolism Discharge Core Measures - Per Current guidelines, there needs to be overlap - treatment for the first 5 days of Warfarin therapy. - If discharged on Warfarin prior to 5 days of - overlap therapy, the patient will need to be - assessed for post discharge needs including - *Post discharge parental anticoagulation - *Warfarin and/or parental anticoagulation education - *Follow up date to check INR post discharge Meds if any: Prescribed or Continued at Discharge Note: Overlap Therapy is Warfarin and Anticoagulant Meds if any: NOT Prescribed or Continued at Discharge
[2017-04-28 15:50] VITALS: BP 124/78
[2017-04-28 22:34] VITALS: BP 138/87
[2017-04-29 06:42] VITALS: BP 122/77
[2017-04-29 09:03] LABS: ABSOLUTE BASOPHIL COUNT 0 /CUMM (0.0-0.2); ABSOLUTE EOSINOPHIL COUNT 0.2 /CUMM (0.0-0.7); ABSOLUTE GRANULOCYTE CT 0.8 /CUMM (1.4-6.5); ABSOLUTE LYMPH COUNT 2.1 /CUMM (1.2-3.4); ABSOLUTE MONOCYTE COUNT 0.5 /CUMM (0.10-0.60); BASOPHIL % 0.6 % (0.0-2.0); EOSINOPHIL % 4.5 % (0-5); GRANULOCYTE % 23.2 % (42.2-75.2); HEMATOCRIT 32.5 % (42-52); MEAN CORPUSCULAR HGB 31.2 PG (27.0-31.0); MEAN CORPUSCULAR HGB CONC 33.5 G/DL (33.0-37.0); MEAN CORPUSCULAR VOLUME 93.2 FL (80.0-94.0); MEAN PLATELET VOLUME 9.5 FL (7.4-10.4); PLATELET COUNT 200 /CUMM (130-400); RBC DISTRIBUTION WIDTH 18.5 % (11.5-14.5); RED BLOOD CELL CT 3.48 /CUMM (4.70-6.10); WHITE BLOOD CELL COUNT 3.6 /CUMM (4.8-10.8)
--- NOTE | 2017-04-29 09:57 | PN- Housestaff ---
Subjective Follow-up For: dka Complaints: no complaints Subjective: Patient was seen and examined today. Patient alert,, oriented. Patient and room air oxygen saturation more than 92%, afebrile blood pressure within acceptable limits. Review of Systems Constitutional: Denies: chills, fever. Cardiovascular: Denies: chest pain, palpitations, peripheral edema. Respiratory: Denies: cough, short of breath, sputum production. Gastrointestinal: Denies: abdominal pain, nausea, vomiting. Genitourinary: Denies: pain. Objective Last 24 Hrs of Vital Signs/I&O Vital Signs Date Time Temp Pulse Resp B/P B/P Pulse O2 O2 Flow FiO2 Mean Ox Delivery Rate 04/29 2221 97.9 90 19 148/88 95 Room Air 04/29 1500 97.5 84 20 120/70 94 Room Air 04/29 0846 122/80 04/29 0845 122/80 04/29 0642 97.3 76 20 122/77 96 Room Air Intake & Output 04/29 1600 04/29 0800 04/29 0000 Intake Total 700 350 550 Output Total Balance 700 350 550 Intake, IV 0 Intake, Oral 700 350 550 Number 0 Bowel Movements Patient 215 lb Weight Physical Exam General Appearance: Alert, Oriented X3, Cooperative HEENT: PERRLA, EOMI Neck: Supple Cardiovascular: Normal S1, Normal S2 Lungs: Normal Air Movement Abdomen: Normal Bowel Sounds, Soft, No Tenderness Extremities: No Cyanosis Current Medications: Current Medications Sig/Gee Start time Last Medication Dose Route Stop Time Status Admin Acetaminophen 325 MG Q6P PRN 04/26 1330 AC PO Albuterol Sulfate 2 PUF Q4-6 PRN PRN 04/26 1430 AC INH Amlodipine Besylate 10 MG DAILY 04/26 1430 AC 04/29 PO 0846 Benztropine Mesylate 0.5 MG BID 04/26 2200 AC 04/29 PO 2031 Cholecalciferol 1,000 IU DAILY 04/27 1000 AC 04/29 PO 0846 Divalproex Sodium 1,000 MG BID 04/260 AC 04/29 PO 2030 Enoxaparin Sodium 40 MG DAILY 04/26 1321 AC 04/29 SC 0844 Fenofibrate 48 MG DAILY 04/28 1000 AC 04/29 PO 0846 Gabapentin 300 MG 4 TIMES/DAY 04/26 1800 AC 04/29 PO 2030 Glimepiride 4 MG DAILY@0800 01/12 0845 AC 04/29 PO 0845 Haloperidol 15 MG BID 04/26 2199 AC 04/29 PO 203 Insulin Aspart Prota 15 UNIT 1/2H B/BREAKF/DINNER 04/28 1630 AC 04/29 70%/Aspart 30% SC 1723 Levothyroxine Sodium 0.05 MG DAILY AC 04/27 0700 AC 04/29 PO 0602 Losartan Potassium 50 MG DAILY 04/27 1000 AC 04/29 PO 0845 Olanzapine 10 MG QPM 04/28 2199 AC 04/29 PO 2030 Olanzapine 2.5 MG QPM 04/28 220 AC 04/29 PO 203 Olanzapine 10 MG DAILY NEEDED PRN 04/28 0930 AC PO Omeprazole 20 MG DAILY AC 04/27 07 AC 04/29 PO 0602 Last 24 Hrs of Lab/Issac Results Last 24 Hrs of Labs/Mics: Laboratory Tests 04/29/17 0700: Anion Gap 17 H, Estimated GFR > 60, BUN/Creatinine Ratio 18.3, CBC w Diff NO MAN DIFF REQ, RBC 3.48 L, MCV 93.2, MCH 31.2 H, RDW 18.5 H, MPV 9.5, Gran % 23.2 L, Lymphocytes % 57.8 H, Monocytes % 13.9 H, Eosinophils % 4.5, Basophils % 0.6, Absolute Granulocytes 0.8 L, Absolute Lymphocytes 2.1, Absolute Monocytes 0.5, Absolute Eosinophils 0.2, Absolute Basophils 0, PUBS MCHC 33.5 Assessment/Plan Assessment: 46-year-old male with past medical history of hypertension, GERD and schizoaffective disorder on multiple psychiatric medications who is here with DKA and new onset diabetes. Patient wasn't discharged as diabetic medication on how to use his home medication wasn't provided. #mild DKA with new onset diabetes Hgb A 1C 16.2 Initial labs: glucose 547, anion gap 26, K+ Anion gap currently 17 Most likely new onset diabetes from obesity 2/2 to psychiatric emdications -cont diabetic meds per endo #shizoaffective disorder -cont olanzapine, haldol, depakote, cogentin, gabapentin #leukopenia Low risk of leukopenia from psych meds per literature search -f/u outpt heme onc #hyperlipidema triglycerides 1254 -> 809-> 661, cholesterol 250 -> 207->202, LDL 72 ->89, HDL 22 -> 23, - fenofibrate #htn -cont losartan, amlodipine, #vitamins -cont vit d #gerd -cont oemprazole #hypothyroid -cont synthroid #sob -cont albuterol #DVT prophylaxis lovenox #FULL CODE Problem List: 1. DKA (diabetic ketoacidoses) Pain Ratin Pain Location: 0 Pain Goal: Remain pain free Pain Plan: same Tomorrow's Labs & Rationales: none
--- NOTE | 2017-04-29 12:13 | PN- Diabetes ---
Assessment/Plan Assessment: 46-year-old male with a known history of schizoaffective disorder presented with high blood sugar and evidence of ketosis with an increased anion gap and reduce bicarbonate but a normal venous pH. MAGUE 65 antibody and c-peptide level are pending. He is on Novolog 70/30 mix 15 units twice a day and Glimepiride 4 mg daily in the morning. His FSGs were 240, 278, 327, 198 and 213. Plan: 1. continue the current DM regimen for now; 2. insulin injection and glucometer teaching; 3. if he is medically stable for discharge, the discharge plan will be the same DM regimen as inpatient; 4. agree with visiting nurse service; 5. f/u in office with Dr. Lui after discharge. Subjective Subjective: He feels better. Objective Last 24 Hrs of Vital Signs/I&O Vital Signs Date Time Temp Pulse Resp B/P B/P Pulse O2 O2 Flow FiO2 Mean Ox Delivery Rate 04/29 0846 122/80 04/29 0845 122/80 04/29 0642 97.3 76 20 122/77 96 Room Air 04/28 2234 97.9 81 18 138/87 94 Room Air 04/28 1550 98.4 94 20 124/78 96 Room Air Intake & Output 04/29 1600 04/29 0800 04/29 0000 Intake Total 350 550 Output Total Balance 350 550 Intake, Oral 350 550 Patient 215 lb Weight Findings Pertinent Lab/Issac Results: Laboratory Tests 04/29 0700 Chemistry Sodium (137 - 145 mmol/L) 141 Potassium (3.5 - 5.1 mmol/L) 4.0 Chloride (98 - 107 mmol/L) 104 Carbon Dioxide (22 - 30 mmol/L) 21 L Anion Gap (5 - 16) 17 H BUN (9 - 20 mg/dL) 11 Creatinine (0.7 - 1.2 mg/dL) 0.6 L Estimated GFR (>60 ml/min) > 60 BUN/Creatinine Ratio (7 - 25 %) 18.3 Hematology CBC w Diff Pending WBC Pending RBC Pending Hgb Pending Hct Pending MCV Pending MCH Pending RDW Pending Plt Count Pending MPV Pending PUBS MCHC Pending
[2017-04-29 15:00] VITALS: BP 120/70
[2017-04-29] MEDS ORDERED: GLIMEPIRIDE2 MG PO ×2 (15:52→15:55)
[2017-04-29] MEDS ORDERED: NOVOLOG MI100 UNIT/1 SC ×2 (15:52→15:55)
[2017-04-29] MEDS ORDERED: TRICOR48 M1 PO (15:55)
[2017-04-29 22:21] VITALS: BP 148/88
[2017-04-30 06:11] VITALS: BP 124/84
[2017-04-30 08:30] LABS: ABSOLUTE BASOPHIL COUNT 0 /CUMM (0.0-0.2); ABSOLUTE EOSINOPHIL COUNT 0.2 /CUMM (0.0-0.7); ABSOLUTE GRANULOCYTE CT 1.1 /CUMM (1.4-6.5); ABSOLUTE LYMPH COUNT 2.2 /CUMM (1.2-3.4); ABSOLUTE MONOCYTE COUNT 0.5 /CUMM (0.10-0.60); BASOPHIL % 0.5 % (0.0-2.0); EOSINOPHIL % 4.5 % (0-5); GRANULOCYTE % 27.5 % (42.2-75.2); HEMATOCRIT 37.2 % (42-52); MEAN CORPUSCULAR HGB CONC 33.2 G/DL (33.0-37.0); MEAN CORPUSCULAR VOLUME 93.3 FL (80.0-94.0); MEAN PLATELET VOLUME 9.2 FL (7.4-10.4); PLATELET COUNT 240 /CUMM (130-400); RBC DISTRIBUTION WIDTH 18.3 % (11.5-14.5); RED BLOOD CELL CT 3.99 /CUMM (4.70-6.10); WHITE BLOOD CELL COUNT 4.1 /CUMM (4.8-10.8)
--- NOTE | 2017-04-30 09:55 | PN- Housestaff ---
Subjective Follow-up For: new onset diabetes dka Subjective: No acute events overnight. Asking to go home Review of Systems Constitutional: Reports: no symptoms. Cardiovascular: Reports: no symptoms. Respiratory: Reports: no symptoms. Gastrointestinal: Reports: no symptoms. Genitourinary: Reports: no symptoms. Musculoskeletal: Reports: no symptoms. Objective Last 24 Hrs of Vital Signs/I&O Vital Signs Date Time Temp Pulse Resp B/P B/P Pulse O2 O2 Flow FiO2 Mean Ox Delivery Rate 04/30 2143 98.6 91 18 130/70 92 Room Air 04/30 0837 128/74 04/30 0836 128/74 04/30 0611 97.6 69 20 124/84 95 Intake & Output 04/30 1600 04/30 0800 04/30 0000 Intake Total 412 526 6828 Output Total 600 Balance 700 100 400 Intake, IV 0 Intake, Oral 075 690 9988 Number 0 Bowel Movements Output, Urine 600 Physical Exam General Appearance: Alert, Oriented X3, Cooperative, No Acute Distress, flat affect Skin Temp/Moisture Exam: Warm/Dry Cardiovascular: Regular Rate, Normal S1, Normal S2 Lungs: Clear to Auscultation, Normal Air Movement Abdomen: Normal Bowel Sounds, Soft, No Tenderness Extremities: 2+ radial pulses Current Medications: Current Medications Sig/Gee Start time Last Medication Dose Route Stop Time Status Admin Acetaminophen 325 MG Q6P PRN 04/26 1330 AC PO Albuterol Sulfate 2 PUF Q4-6 PRN PRN 04/26 1430 AC INH Amlodipine Besylate 10 MG DAILY 04/26 1430 AC 04/30 PO 0837 Benztropine Mesylate 0.5 MG BID 04/26 2200 AC 04/30 PO 2055 Cholecalciferol 1,000 IU DAILY 04/27 1000 AC 04/30 PO 0837 Divalproex Sodium 1,000 MG BID 04/26 2200 AC 04/30 PO 2055 Enoxaparin Sodium 40 MG DAILY 04/26 1321 AC 04/30 SC 0837 Fenofibrate 48 MG DAILY 04/28 1000 AC 04/30 PO 0837 Gabapentin 300 MG 4 TIMES/DAY 04/26 1800 AC 04/30 PO 2055 Glimepiride 4 MG DAILY@0800 04/28 0845 AC 04/30 PO 0835 Haloperidol 15 MG BID 04/26 220 AC 04/30 PO 2055 Insulin Aspart Prota 15 UNIT 1/2H B/BREAKF/DINNER 04/28 1630 AC 04/30 70%/Aspart 30% SC 1729 Levothyroxine Sodium 0.05 MG DAILY AC 04/27 0700 AC 04/30 PO 0644 Losartan Potassium 50 MG DAILY 04/27 1000 AC 04/30 PO 0836 Olanzapine 10 MG QPM 04/28 2200 AC 04/30 PO 205 Olanzapine 2.5 MG QPM 04/28 2200 AC 04/30 PO 205 Olanzapine 10 MG DAILY NEEDED PRN 04/28 0930 AC PO Omeprazole 20 MG DAILY AC 04/27 0700 AC 04/30 PO 0644 Polyethylene Glycol 17 GM DAILY PRN 04/30 1515 AC PO Senna 187 MG AT BEDTIME PRN 04/30 1515 AC PO Last 24 Hrs of Lab/Issac Results Last 24 Hrs of Labs/Mics: Laboratory Tests 04/30/17 0700: Anion Gap 17 H, Estimated GFR > 60, BUN/Creatinine Ratio 17.1, CBC w Diff NO MAN DIFF REQ, RBC 3.99 L, MCV 93.3, MCH 31.0, RDW 18.3 H, MPV 9.2, Gran % 27.5 L, Lymphocytes % 54.3 H, Monocytes % 13.2 H, Eosinophils % 4.5, Basophils % 0.5, Absolute Granulocytes 1.1 L, Absolute Lymphocytes 2.2, Absolute Monocytes 0.5, Absolute Eosinophils 0.2, Absolute Basophils 0, PUBS MCHC 33.2 Assessment/Plan Assessment: 46-year-old male with past medical history of hypertension, GERD and schizoaffective disorder on multiple psychiatric medications who is here with DKA and new onset diabetes. Patient wasn't discharged due to issues with his pharmacy not fulfilling the scribts #mild DKA with new onset diabetes Hgb A 1C 16.2 Initial labs: glucose 547, anion gap 26, K+ Anion gap currently 17 Most likely new onset diabetes from obesity 2/2 to psychiatric emdications -discharge tomorrow with glimepriride and novolog mix BID. follow up for further med management with endo #shizoaffective disorder -cont olanzapine, haldol, depakote, cogentin, gabapentin #leukopenia Low risk of leukopenia from psych meds per literature search -f/u outpt heme onc #hyperlipidema triglycerides 1254 -> 809-> 661, cholesterol 250 -> 207->202, LDL 72 ->89, HDL 22 -> 23, - fenofibrate #htn -cont losartan, amlodipine, #vitamins -cont vit d #gerd -cont oemprazole #hypothyroid -cont synthroid #sob -cont albuterol #DVT prophylaxis lovenox #FULL CODE Problem List: 1. DKA (diabetic ketoacidoses) 2. Leukopenia Pain Ratin Pain Location: 0 Pain Goal: Pain 4 or less Pain Plan: pain pathway Tomorrow's Labs & Rationales: none
[2017-04-30] MEDS ORDERED: NOVOLOG MI100 UNIT/2 SC ×2 (10:55→11:16)
[2017-04-30] MEDS ORDERED: TRICOR48 M1 PO (11:16)
[2017-04-30] MEDS ORDERED: GLIMEPIRIDE2 MG PO (11:16)
--- NOTE | 2017-04-30 13:00 | PN- Diabetes ---
Assessment/Plan Assessment: 46-year-old male with a known history of schizoaffective disorder presented with high blood sugar and evidence of ketosis with an increased anion gap and reduce bicarbonate but a normal venous pH. MAGUE 65 antibody and c-peptide level are pending. He is on Novolog 70/30 mix 15 units twice a day and Glimepiride 4 mg daily in the morning. His FSGs were 213, 236, 202, 280 and 219. As per patient, he learned how to check glucose level and how to receive the insulin injection. He is waiting for going home. Plan: 1. continue the current DM regimen for now; 2. if he is medically stable for discharge, the discharge plan will be the same DM regimen as inpatient; 3. visiting nurse service for assisting DM management at home; 4. f/u in office next week after discharge. Subjective Subjective: He feels okay this morning and he would like to go home. Objective Last 24 Hrs of Vital Signs/I&O Vital Signs Date Time Temp Pulse Resp B/P B/P Pulse O2 O2 Flow FiO2 Mean Ox Delivery Rate 04/30 0837 128/74 04/30 0836 128/74 04/30 0611 97.6 69 20 124/84 95 04/29 2221 97.9 90 19 148/88 95 Room Air 04/29 1500 97.5 84 20 120/70 94 Room Air Intake & Output 04/30 1600 04/30 0800 04/30 0000 Intake Total 100 1000 Output Total 600 Balance 100 400 Intake, Oral 100 1000 Output, Urine 600 Findings Pertinent Lab/Issac Results: Laboratory Tests 04/30 0700 Chemistry Sodium (137 - 145 mmol/L) 143 Potassium (3.5 - 5.1 mmol/L) 4.1 Chloride (98 - 107 mmol/L) 101 Carbon Dioxide (22 - 30 mmol/L) 25 Anion Gap (5 - 16) 17 H BUN (9 - 20 mg/dL) 12 Creatinine (0.7 - 1.2 mg/dL) 0.7 Estimated GFR (>60 ml/min) > 60 BUN/Creatinine Ratio (7 - 25 %) 17.1 Hematology CBC w Diff NO MAN DIFF REQ WBC (4.8 - 10.8 /CUMM) 4.1 L RBC (4.70 - 6.10 /CUMM) 3.99 L Hgb (14.0 - 18.0 G/DL) 12.4 L Hct (42 - 52 %) 37.2 L MCV (80.0 - 94.0 FL) 93.3 MCH (27.0 - 31.0 PG) 31.0 RDW (11.5 - 14.5 %) 18.3 H Plt Count (130 - 400 /CUMM) 240 MPV (7.4 - 10.4 FL) 9.2 Gran % (42.2 - 75.2 %) 27.5 L Lymphocytes % (20.5 - 51.1 %) 54.3 H Monocytes % (1.7 - 9.3 %) 13.2 H Eosinophils % (0 - 5 %) 4.5 Basophils % (0.0 - 2.0 %) 0.5 Absolute Granulocytes (1.4 - 6.5 /CUMM) 1.1 L Absolute Lymphocytes (1.2 - 3.4 /CUMM) 2.2 Absolute Monocytes (0.10 - 0.60 /CUMM) 0.5 Absolute Eosinophils (0.0 - 0.7 /CUMM) 0.2 Absolute Basophils (0.0 - 0.2 /CUMM) 0 PUBS MCHC (33.0 - 37.0 G/DL) 33.2
[2017-04-30 21:43] VITALS: BP 130/70
[2017-05-01 06:33] VITALS: BP 114/68
--- NOTE | 2017-05-01 07:35 | PN- Housestaff ---
Bryan ARRIAGA,[facility] 05/01/17 0734: Subjective Follow-up For: dka new onset diabetes Subjective: Unable to discharge yesterday due to pharmacy issues Review of Systems Constitutional: Reports: no symptoms. Cardiovascular: Reports: no symptoms. Respiratory: Reports: no symptoms. Gastrointestinal: Reports: no symptoms. Genitourinary: Reports: no symptoms. Skin: Reports: no symptoms. Objective Last 24 Hrs of Vital Signs/I&O Vital Signs Date Time Temp Pulse Resp B/P B/P Pulse O2 O2 Flow FiO2 Mean Ox Delivery Rate 05/01 0936 75 114/68 05/01 0935 75 114/68 05/01 0633 97.5 75 20 114/68 93 04/30 2143 98.6 91 18 130/70 92 Room Air Intake & Output 05/01 1600 05/01 0800 05/01 0000 Intake Total 340 800 Output Total Balance 340 800 Intake, IV 0 Intake, Oral 340 800 Number 0 Bowel Movements Physical Exam General Appearance: Alert, Oriented X3, Cooperative, flat affect Skin Temp/Moisture Exam: Warm/Dry Cardiovascular: Regular Rate, Normal S1, Normal S2 Lungs: Clear to Auscultation, Normal Air Movement Abdomen: Normal Bowel Sounds, Soft, No Tenderness Extremities: 2+ radial pulses Current Medications: Current Medications Sig/Gee Start time Last Medication Dose Route Stop Time Status Admin Acetaminophen 325 MG Q6P PRN 04/26 1330 DCD PO Albuterol Sulfate 2 PUF Q4-6 PRN PRN 04/26 1430 DCD INH Amlodipine Besylate 10 MG DAILY 04/26 1430 DCD 05/01 PO 0936 Benztropine Mesylate 0.5 MG BID 04/26 2199 DCD 05/01 PO 0935 Cholecalciferol 1,000 IU DAILY 04/27 1000 DCD 05/01 PO 0937 Divalproex Sodium 1,000 MG BID 04/26 2200 DCD 05/01 PO 0934 Enoxaparin Sodium 40 MG DAILY 04/26 1321 DCD 05/01 SC 0937 Fenofibrate 48 MG DAILY 04/28 1000 DCD 05/01 PO 0937 Gabapentin 300 MG 4 TIMES/DAY 04/26 1800 DCD 05/01 PO 0936 Glimepiride 4 MG DAILY@0800 04/28 0845 DCD 05/01 PO 0800 Haloperidol 15 MG BID 04/26 2200 DCD 05/01 PO 0936 Insulin Aspart Prota 15 UNIT 1/2H B/BREAKF/DINNER 04/28 1630 DCD 05/01 70%/Aspart 30% SC 0649 Levothyroxine Sodium 0.05 MG DAILY AC 04/27 0700 DCD 05/01 PO 0649 Losartan Potassium 50 MG DAILY 04/27 1000 DCD 05/01 PO 0935 Olanzapine 10 MG QPM 04/28 2200 DCD 04/30 PO 205 Olanzapine 2.5 MG QPM 04/28 2200 DCD 04/30 PO 2056 Olanzapine 10 MG DAILY NEEDED PRN 04/28 0930 DCD PO Omeprazole 20 MG DAILY AC 04/27 0700 DCD 05/01 PO 0649 Patient Medication 1 ED ONE ONE 05/01 1315 DC Teaching ED 05/01 1316 Polyethylene Glycol 17 GM DAILY PRN 04/30 1515 DCD PO Senna 187 MG AT BEDTIME PRN 04/30 1515 DCD PO Assessment/Plan Assessment: A: 46-year-old male with past medical history of hypertension, GERD and schizoaffective disorder on multiple psychiatric medications who is here with DKA and new onset diabetes. #mild DKA with new onset diabetes Hgb A 1C 16.2 Initial labs: glucose 547, anion gap 26, K+ Anion gap currently 17 Most likely new onset diabetes from obesity 2/2 to psychiatric emdications -dischargewith glimepriride and novolog mix BID. follow up for further med management with endo #shizoaffective disorder -cont olanzapine, haldol, depakote, cogentin, gabapentin #leukopenia Low risk of leukopenia from psych meds per literature search -f/u outpt heme onc #hyperlipidema triglycerides 1254 -> 809-> 661, cholesterol 250 -> 207->202, LDL 72 ->89, HDL 22 -> 23, - fenofibrate #htn -cont losartan, amlodipine, #vitamins -cont vit d #gerd -cont oemprazole #hypothyroid -cont synthroid #sob -cont albuterol #DVT prophylaxis lovenox #FULL CODE Problem List: 1. Hyperlipidemia 2. Leukopenia 3. DKA (diabetic ketoacidoses) Pain Ratin Pain Location: none Pain Goal: Pain 4 or less Pain Plan: pain pathway Tomorrow's Labs & Rationales: none Clyde,Manik 05/01/17 1351: Attending MD Review Statement Attending Statement Attending MD Statement: examined this patient, discuss w/resident/PA/TALENT ENGINEER, agreed w/resident/PA/TALENT ENGINEER, discussed with family, reviewed EMR data (avail), discussed with nursing, discussed with case mgmt, reviewed images, amended to note Attending Assessment/Plan: 46 o/m with pmh of schizoaffective disorder on multiple [facility] meds and recent admission to [facility] is admitted here for uncontrolled DM with DKA. Endocrinology consulted and recommend insulin for hbaic 16. Daibetes education and case management consult for safe dc planning. [facility] [employer]ODUCTION [employer] seen patient and recommend to continue outpatient pysch regimen. Patient is history of non compliant in past and he needs to close follow up with his outpatient pyschiatrist and PCP director of quality control Dr Lui. Patient is requesting for discharge. Patient is also pyshciatrically cleared.
--- NOTE | 2017-05-01 08:09 | PN- Diabetes ---
Assessment/Plan Assessment: 46-year-old male with a known history of schizoaffective disorder presented with high blood sugar and evidence of ketosis with an increased anion gap and reduce bicarbonate but a normal venous pH. MAGUE 65 antibody and c-peptide level are pending. He is on Novolog 70/30 mix 15 units twice a day and Glimepiride 4 mg daily in the morning. His FSGs were to 19 before breakfast, 200 before lunch, 254 before dinner, and 249 at bedtime. This morning his fingerstick blood sugar is 214 before breakfast.. As per patient, he learned how to check glucose level and how to receive the insulin injection. He is waiting for going home. Plan: Suggest continue the present diabetes regimen. The patient will need to be taught to use insulin pens at home. However he states he does have a nurse who comes to his house twice a day. Subjective Subjective: Feels okay Review of Systems Constitutional: Denies: chills, fever. Cardiovascular: Denies: chest pain. Respiratory: Denies: short of breath. Gastrointestinal: Denies: nausea, vomiting. Musculoskeletal: Denies: joint pain. Skin: Reports: no symptoms. Objective Last 24 Hrs of Vital Signs/I&O Vital Signs Date Time Temp Pulse Resp B/P B/P Pulse O2 O2 Flow FiO2 Mean Ox Delivery Rate 05/01 0533 97.5 75 20 114/68 93 04/30 2143 98.6 91 18 130/70 92 Room Air 04/30 0837 128/74 04/30 0836 128/74 Intake & Output 05/01 1600 05/01 0000 Intake Total 800 Output Total Balance 800 Intake, Oral 800 Vital Signs Date Time Temp Pulse Resp B/P B/P Pulse O2 O2 Flow FiO2 Mean Ox Delivery Rate 05/01 0533 97.5 75 20 114/68 93 04/30 2143 98.6 91 18 130/70 92 Room Air 04/30 0837 128/74 04/30 0836 128/74 Intake & Output 05/01 1600 05/01 0700 05/01 0000 Intake Total 800 Output Total Balance 800 Intake, Oral 800 Physical Exam General Appearance: alert, awake, comfortable Head: normal appearance Neck: normal inspection Respiratory: normal breath sounds Abdomen: normal bowel sounds Current Medications: Current Medications Sig/Gee Start time Last Medication Dose Route Stop Time Status Admin Acetaminophen 325 MG Q6P PRN 04/26 1330 AC PO Albuterol Sulfate 2 PUF Q4-6 PRN PRN 04/26 1430 AC INH Amlodipine Besylate 10 MG DAILY 04/26 1430 AC 04/30 PO 0837 Benztropine Mesylate 0.5 MG BID 04/26 2200 AC 04/30 PO 2055 Cholecalciferol 1,000 IU DAILY 04/27 1000 AC 04/30 PO 0837 Divalproex Sodium 1,000 MG BID 04/26 2199 AC 04/30 PO 2055 Enoxaparin Sodium 40 MG DAILY 04/26 1321 AC 04/30 SC 0837 Fenofibrate 48 MG DAILY 04/28 1000 AC 04/30 PO 0837 Gabapentin 300 MG 4 TIMES/DAY 04/26 1800 AC 04/30 PO 2055 Glimepiride 4 MG DAILY@0800 04/28 0845 AC 04/30 PO 0835 Haloperidol 15 MG BID 04/26 2199 AC 04/30 PO 2055 Insulin Aspart Prota 15 UNIT 1/2H B/BREAKF/DINNER 04/28 1630 AC 05/01 70%/Aspart 30% SC 0649 Levothyroxine Sodium 0.05 MG DAILY AC 04/27 07 AC 05/01 PO 0649 Losartan Potassium 50 MG DAILY 04/27 1000 AC 04/30 PO 0836 Olanzapine 10 MG QPM 04/28 220 AC 04/30 PO 2055 Olanzapine 2.5 MG QPM 04/28 220 AC 04/30 PO 2055 Olanzapine 10 MG DAILY NEEDED PRN 04/28 0930 AC PO Omeprazole 20 MG DAILY AC 04/27 07 AC 05/01 PO 0649 Polyethylene Glycol 17 GM DAILY PRN 04/30 1515 AC PO Senna 187 MG AT BEDTIME PRN 04/30 1515 AC PO
[2017-05-01 09:36] VITALS: BP 114/68
[2017-05-01] MEDS ORDERED: GLIMEPIRIDE2 MG PO (11:01)
[2017-05-01] MEDS ORDERED: TRICOR48 M1 PO ×2 (11:01→11:53)
[2017-05-01] MEDS ORDERED: NOVOLOG MI100 UNIT/2 SC ×3 (11:01→12:01)
--- NOTE | 2017-05-01 21:43 | Discharge Summary ---
Visit Information Visit Dates Admission Date: 04/26/17 Hospital Course Allergies: Coded Allergies: NO KNOWN ALLERGIES (01/21/11) Disposition Summary Disposition Principal Diagnosis: A: 46-year-old male with past medical history of hypertension, GERD and schizoaffective disorder on multiple psychiatric medications who is here with DKA and new onset diabetes. #mild DKA with new onset diabetes Hgb A 1C 16.2 Initial labs: glucose 547, anion gap 26, K+ Anion gap currently 17 Most likely new onset diabetes from obesity 2/2 to psychiatric emdications -dischargewith glimepriride and novolog mix BID. follow up for further med management with endo #shizoaffective disorder -cont olanzapine, haldol, depakote, cogentin, gabapentin #leukopenia Low risk of leukopenia from psych meds per literature search -f/u outpt heme onc #hyperlipidema triglycerides 1254 -> 809-> 661, cholesterol 250 -> 207->202, LDL 72 ->89, HDL 22 -> 23, - fenofibrate #htn -cont losartan, amlodipine, #vitamins -cont vit d #gerd -cont oemprazole #hypothyroid -cont synthroid #sob -cont albuterol #DVT prophylaxis lovenox #FULL CODE Discharge Instructions Medications at Discharge Discharge Medications: Continue taking these medications: Levothyroxine Sodium (Levothyroxine Sodium) 50 MCG TABLET 1 Tablet ORAL DAILY BEFORE BREAKFAST Comments: Last Taken: 05/01/17 Time: 0645AM Pantoprazole Sodium (Protonix) 20 MG TABLET.DR 1 Tablet ORAL DAILY Comments: OMEPRAZOLE GIVEN IN HOSPITAL Last Taken: 05/01/17 Time: 0645AM Amlodipine Besylate (Norvasc) 10 MG TABLET 1 Tablet ORAL DAILY Comments: Last Taken: 05/01/17 Time: 0930AM Benztropine Mesylate (Benztropine Mesylate) 0.5 MG TABLET 1 Tablet ORAL TWICE DAILY Comments: Last Taken: 05/01/17 Time: 0930AM Divalproex Sodium (Depakote) 500 MG TABLET.DR 2 Tablet ORAL TWICE DAILY Qty = 120 Comments: Last Taken: 05/01/17 Time: 0930AM Gabapentin (Neurontin) 300 MG CAPSULE 1 Capsule ORAL 4 TIMES A DAY Qty = 120 Comments: Last Taken: 05/01/17 Time: 0930AM Cholecalciferol (Vitamin D3) (Vitamin D) 1,000 UNIT TABLET 1 Tablet ORAL DAILY Comments: Last Taken: 05/01/17 Time: 0930AM Olanzapine (Olanzapine) 10 MG TABLET 1 Tablet ORAL Every night Qty = 45 Comments: Last Taken: 04/30/17 Time: 900PM Haloperidol Decanoate (Haldol Decanoate 50) 50 MG/ML AMPUL 50 Milligram Inject into fatty tissue EVERY 2 WEEKS Qty = 3 Comments: NOT GIVEN HALDOL 15MG GIVEN Last Taken:05/01/17 Time:0930AM Docusate Sodium (Colace) 100 MG CAPSULE 1 Capsule ORAL TWICE DAILY as needed for CONSTIPATION Comments: NOT GIVEN Albuterol Sulfate (Proair Hfa) 90 MCG HFA.AER.AD 2 Puff Inhale through mouth EVERY 4-6 HOURS NEEDED as needed for SOB Qty = 9 Comments: NOT GIVEN Olanzapine (Olanzapine) 10 MG TABLET 1 Tablet ORAL DAILY as needed for MENTAL HEALTH Comments: NOT GIVEN Losartan Potassium (Losartan Potassium) 50 MG TABLET 1 Tablet ORAL DAILY Qty = 90 Comments: Last Taken: 05/01/17 Time: 0930AM Haloperidol (Haloperidol) 5 MG TABLET 3 Tablet ORAL TWICE DAILY Qty = 60 Comments: Last Taken: 04/30/17 Time: 0900 Olanzapine (Zyprexa) 2.5 MG TABLET 1 Tablet ORAL Every night Qty = 30 Comments: Last Taken: 04/30/17 Time: 0900PM Start taking the following new medications: Glimepiride (Glimepiride) 2 MG TABLET 4 Milligram ORAL DAILY Qty = 60 No Refills Instructions: . Comments: Last Taken: 05/01/17 Time: 0800AM Fenofibrate (Tricor) 48 MG TABLET 1 Tablet ORAL DAILY Qty = 30 No Refills Comments: Last Taken: 05/01/17 Time: 0930AM Insulin Aspart Protam & Aspart (Novolog Mix 70-30 Flexpen Syrn) 100 UNIT/ML (70- 30) INSULN.PEN 15 Units Inject into fatty tissue 1/2 HR BEFORE BREAKFAST/DINNER Qty = 20 Refills = 1 Instructions: Please check blood sugars before meals and at night Please hold insulin for blood sugar less than 150 Comments: Last Taken: 05/01/17 Time: 0645AM Attending MD Review Statement Documenting Attending: Clyde ARRIAGARobert Other Findings: 46 o/m with pmh of schizoaffective disorder on multiple [facility] meds and recent admission to [facility] is admitted here for uncontrolled DM with DKA. Endocrinology consulted and recommend insulin for hba1c 16. Daibetes education and case management consult for safe dc planning. [facility] [employer] seen patient and recommend to continue outpatient pysch regimen. Patient is history of non compliant in past and he needs to close follow up with his outpatient pyschiatrist and PCP line closer Dr Lui. Patient is requesting for discharge. Patient is also pyshciatrically cleared. Patient needs close f/u and monitoring of his blood sugars and this was educated to patient.
== END 2017-05-01 13:30 | disposition home health service (06) | DRG 420 ==
LOC: ERH 09:58 → 2NB 13:03 → ERHI 13:03 → CANRESERV 14:02 → ENRESERV 14:02 → CANBEDREQ 14:17 → ENRESERV 17:34 → ENTRNSPT 19:46 → EDTRNSPTSTS 19:53 → 2NB 20:08 → CMPTRNSPT 20:30 → 2NB 04-28 09:00 → ENPENDDIS 05-01 11:03 → 2NB 05-01 13:30
PROVIDERS: Internal Medicine; Physician Assistant Medical; Student in an Organized Health Care Education/Training Program
DX: E11.10 Type 2 diabetes mellitus with ketoacidosis without coma (principal); I10 Essential (primary) hypertension; F25.9 Schizoaffective disorder, unspecified; R63.4 Abnormal weight loss; Z68.35 Body mass index [BMI] 35.0-35.9, adult; E66.01 Morbid (severe) obesity due to excess calories; E78.5 Hyperlipidemia, unspecified; E78.1 Pure hyperglyceridemia; D72.819 Decreased white blood cell count, unspecified; K21.9 Gastro-esophageal reflux disease without esophagitis; E03.9 Hypothyroidism, unspecified; R06.02 Shortness of breath; Z79.51 Long term (current) use of inhaled steroids
CPT/HCPCS: 2NBSP; 83519; 36415; 71046; 81003; 82436; 93005; 93010; 96361; 96374; 96375; 99291; J1650; J1815; J3490